=== PATIENT | male | born 1985 | race African-American/Black ===

== ENCOUNTER 2016-10-24 19:40 | Emergency (ER) | payer SELFPAY ==
[2016-10-24] MEDS ORDERED: PANTOPRAZOLE SODIUM 40 MG VIAL IV ONE (22:47)
[2016-10-24] MEDS ORDERED: ONDANSETRON HCL INJ/PF 4 MG/2 ML SDV IV ONE (22:47)
[2016-10-24] MEDS ORDERED: LORAZEPAM INJ 2 MG/1 ML VIAL IV ONE (22:48)
[2016-10-24] MEDS ORDERED: NORMAL SALINE 1000 ML 1,000 ML IV ONE (22:48)
[2016-10-24] MEDS ORDERED: HYDROMORPHONE HCL INJ/PF 2 MG/ML AMPULE IV ONE (22:48)
--- NOTE | 2016-10-24 22:53 | ER Document Report ---
ED General - General Chief Complaint: Nausea/Vomiting/Diarrhea Stated Complaint: NAUSEA,VOMITING,ABDOMINAL PAIN Time Seen by Provider: 10/24/16 22:29 Mode of Arrival: Ambulatory Information source: Patient, Relative TRAVEL OUTSIDE OF THE [place] IN LAST 30 DAYS: No - HPI Notes: Patient is a 30-year-old black male history of alcohol abuse drinks a sixpack plus hard liquor every day, has a history of recurrent vomiting and gastritis presents emergency department with report of persistent nausea and vomiting since earlier today. He does describe mild nonbloody diarrhea. He reports no hematemesis. He states he has diffuse upper abdominal pain. He states he has been seen previous times for the same, most recently down in [place] and at an urgent care center. The patient states she was given Phenergan and ibuprofen for pain. Patient denies any cough congestion chest pain Or fever. He describes generalized weakness with sensation of dehydration. Patient states he drinks daily, but denies history of DTs or shakes or seizures. - Related Data Allergies/Adverse Reactions: No Known Allergies Allergy (Verified 10/24/16 20:01) Past Medical History - General Information source: Patient - Social History Smoking Status: Current Every Day Smoker Frequency of alcohol use: Heavy Drug Abuse: Marijuana Lives with: Family Family History: Reviewed & Not Pertinent Neurological Medical History: Denies: Hx Seizures Renal/ Medical History: Denies: Hx Peritoneal Dialysis - Immunizations Immunizations up to date: Yes Hx Diphtheria, Pertussis, Tetanus Vaccination: Yes Review of Systems - Review of Systems Notes: REVIEW OF SYSTEMS: CONSTITUTIONAL : Denies fever, chills, or sweats. EENT: Denies eye, ear, throat, or mouth pain or symptoms. Denies nasal or sinus congestion or discharge. Denies throat, tongue, or mouth swelling or difficulty swallowing. CARDIOVASCULAR: Denies chest pain. Denies palpitations or racing or irregular heart beat. Denies ankle edema. RESPIRATORY: Denies cough, cold, or chest congestion. Denies shortness of breath, difficulty breathing, or wheezing. GASTROINTESTINAL: Denies blood in vomitus, stools, or per rectum. Denies black, tarry stools. Denies constipation. GENITOURINARY: Denies difficulty urinating, painful urination, burning, frequency, blood in urine, or discharge. MUSCULOSKELETAL: Denies back or neck pain or stiffness. Denies joint pain or swelling. SKIN: Denies rash, lesions or sores. HEMATOLOGIC : Denies easy bruising or bleeding. LYMPHATIC: Denies swollen, enlarged glands. NEUROLOGICAL: Denies confusion or altered mental status. Denies passing out or loss of consciousness. Denies dizziness or lightheadedness. Denies headache. Denies weakness or paralysis or loss of use of either side. Denies problems with gait or speech. Denies sensory loss, numbness, or tingling. Denies seizures. PSYCHIATRIC: Denies anxiety or stress. Denies depression, suicidal ideation, or homicidal ideation. ALL OTHER SYSTEMS REVIEWED AND NEGATIVE. Dictation was performed using [employer] voice recognition software Physical Exam - Vital signs Vitals: Temp Pulse BP Pulse Ox 98.0 F 77 125/83 100 10/24/16 20:04 10/24/16 20:04 10/24/16 20:04 10/24/16 20:04 - Notes Notes: PHYSICAL EXAMINATION: GENERAL: Well-appearing, well-nourished and in no moderate distress vomiting actively without hematemesis.. HEAD: Atraumatic, normocephalic. EYES: Pupils equal round and reactive to light, extraocular movements intact, sclera anicteric, conjunctiva are normal. ENT: Nares patent, oropharynx clear without exudates. Mucous membranes somewhat dry. NECK: Normal range of motion, supple without lymphadenopathy LUNGS: Breath sounds clear to auscultation bilaterally and equal. No wheezes rales or rhonchi. HEART: Regular rate and rhythm without murmurs ABDOMEN: Soft, nondistended abdomen. No guarding, no rebound. No masses appreciated. Upper midline abdominal tenderness noted on exam. No obvious hepatosplenomegaly no pulsatile mass. Musculoskeletal: Normal range of motion, no pitting or edema. No cyanosis. NEUROLOGICAL: Cranial nerves grossly intact. Normal speech, normal gait. Normal sensory, motor exams PSYCH: Normal mood, normal affect. SKIN: Warm, Dry, normal turgor, no rashes or lesions noted. Course - Re-evaluation Re-evalutation: 10/24/16 23:01 Patient was given IV normal saline bolus, Zofran, Protonix, Dilaudid, Ativan. 10/25/16 03:55 Patient was given additional IV normal saline with 20 KCl 1 L. Patient was given Pepcid and Carafate by mouth with adequate relief of his pain. Repeat abdominal exam showed no significant pain and patient was able to tolerate p.o. fluids without difficulty. There was no evidence for DTs or alcohol withdrawal. No evidence for pancreatitis, hepatitis, renal insufficiency, GI bleed. 10/25/16 03:59 - Vital Signs Vital signs: Temp Pulse Resp BP Pulse Ox 97.9 F 75 16 117/64 97 10/25/16 02:34 10/25/16 02:34 10/25/16 02:34 10/25/16 02:34 10/25/16 02:34 - Laboratory Result Diagrams: 10/25/16 00:20 10/25/16 00:20 Laboratory results interpreted by me: 10/25/16 10/25/16 10/25/16 00:20 00:20 00:20 Seg Neuts % (Manual) 92 H Lymphocytes % (Manual) 5 L Abs Neuts (Manual) 8.3 H Sodium 145.9 H Potassium 3.4 L Glucose 120 H Calcium 10.6 H Total Protein 9.1 H Albumin 5.3 H Urine Protein 30 H Urine Ketones 80 H Ur Leukocyte Esterase TRACE H Discharge - Discharge Clinical Impression: Alcohol abuse Gastritis Qualifiers: Gastritis type: alcoholic Chronicity: chronic Gastritis bleeding: without bleeding Qualified Code(s): K29.20 - Alcoholic gastritis without bleeding Vomiting Qualifiers: Vomiting type: cyclical vomiting Vomiting Intractability: intractable Nausea presence: with nausea Qualified Code(s): G43.A1 - Cyclical vomiting, intractable Condition: Stable Disposition: HOME, SELF-CARE Instructions: Antinausea Medication ([facility]), Intravenous (IV) Fluids ([facility]), Vomiting ([facility]), Gastritis ([facility]) Additional Instructions: Stop ibuprofen And other anti-inflammatory medications, as they are irritating her stomach. Prescriptions: Tramadol HCl [Ultram] 50 mg PO Q4HP PRN #20 tablet PRN Reason: Ondansetron [Zofran Odt 4 mg Tablet] 1 tab PO Q8HP PRN #10 tab.rapdis PRN Reason: For Nausea/Vomiting Omeprazole 40 mg PO DAILY #60 capsule.
[2016-10-25 00:42] LABS: AMORPHOUS SEDIMENT,URINE TRACE /HPF; APPEARANCE,URINE CLOUDY; BILIRUBIN,URINE NEGATIVE (NEGATIVE); GLUCOSE, URINE NEGATIVE (NEGATIVE); KETONES,URINE 80 mg/dL (NEGATIVE); LEUKOCYTE ESTERASE,URINE TRACE (NEGATIVE); NITRITE,URINE NEGATIVE (NEGATIVE); PROTEIN,URINE 30 mg/dL (NEGATIVE); URINE SPECIFIC GRAVITY 1.033; UROBILINOGEN,URINE NEGATIVE mg/dL (<2.0)
[2016-10-25 00:46] LABS: HEMATOCRIT 42.2 % (37.9-51.0); HGB HCT DIFFERENCE -0.2; MEAN CORPUSCULAR HEMOGLOBIN 31.3 pg (27.0-33.4); MEAN CORPUSCULAR HGB CONC 33.2 g/dL (32.0-36.0); MEAN CORPUSCULAR VOLUME 94 fl (80-97); RED BLOOD COUNT 4.47 10^6/uL (4.35-5.55); RED CELL DISTRIBUTION WIDTH 13.7 % (11.5-14.0)
[2016-10-25 00:48] LABS: ALANINE AMINOTRANSFERASE 31 U/L (21-72); ALBUMIN 5.3 g/dL (3.5-5.0); ALKALINE PHOSPHATASE 68 U/L (38-126); AMYLASE 75 U/L (30-110); ANION GAP 18 (5-19); ASPARTATE AMINO TRANSFERASE 40 U/L (17-59); BILIRUBIN,DIRECT 0.4 mg/dL (0.0-0.4); BILIRUBIN,TOTAL 0.9 mg/dL (0.2-1.3); BLOOD UREA NITROGEN 11 mg/dL (7-20); CALCIUM 10.6 mg/dL (8.4-10.2); CARBON DIOXIDE 25 mmol/L (22-30); CHLORIDE 103 mmol/L (98-107); CREATININE RESULT 0.71 mg/dL (0.52-1.25); GLUCOSE 120 mg/dL (75-110); LIPASE 43.5 U/L (23-300); POTASSIUM 3.4 mmol/L (3.6-5.0); SODIUM 145.9 mmol/L (137-145); TOTAL PROTEIN 9.1 g/dL (6.3-8.2)
[2016-10-25 00:51] LABS: ALCOHOL < 10 mg/dL (NONE DETECTED)
[2016-10-25 00:54] LABS: URINE BARBITURATES SCREEN NEGATIVE; URINE METHADONE SCREEN NEGATIVE; URINE OPIATES LOW NEGATIVE; URINE PHENCYCLIDINE SCREEN NEGATIVE
[2016-10-25 01:09] LABS: BASOPHILS % (MANUAL) 0 % (0-2); EOSINOPHILS % (MANUAL) 0 % (0-6); LYMPHOCYTES % (MANUAL) 5 % (13-45); TOTAL CELLS COUNTED 100
[2016-10-25 01:10] LABS: RBC MORPHOLOGY COMMENT NORMO-CYTIC/CHROMIC; TOXIC GRANULATION SLIGHT
[2016-10-25] MEDS ORDERED: POTASSI CL 20 MEQ/1/2NS 1L 1,000 ML IV ONE (01:23)
[2016-10-25] MEDS ORDERED: SUCRALFATE 1 GM TABLET PO ONE (01:26)
[2016-10-25] MEDS ORDERED: FAMOTIDINE 20 MG TABLET PO ONE (01:26)
[2016-10-25] MEDS ORDERED: ONDANSETRON ODT 4 MG TAB (6 TAB/DSPK) PO PRN (04:00)
[2016-10-25 04:39] VITALS: BP 108/69
== END 2016-10-25 04:40 | disposition home or self-care (01) ==
LOC: ER 19:40
DX: F10.10 Alcohol abuse, uncomplicated (principal); K29.20 Alcoholic gastritis without bleeding; G43.A1 Cyclical vomiting, in migraine, intractable; R19.7 Diarrhea, unspecified; R10.9 Unspecified abdominal pain
CPT/HCPCS: 99284; 96361; 96375; 96365; 36415; 80307 ×2; 82150; 83690; 85025; 80053; 81001; J3480; J1170; J2060; S0164; J2405; J7030

== ENCOUNTER 2016-10-26 10:43 | Emergency (ER) | payer SELFPAY ==
[2016-10-26] MEDS ORDERED: ONDANSETRON HCL INJ/PF 4 MG/2 ML SDV IV ONE (11:09)
[2016-10-26] MEDS ORDERED: NORMAL SALINE 1000 ML 1,000 ML IV ONE (11:09)
--- NOTE | 2016-10-26 11:11 | ER Document Report ---
ED Medical Screen (RME) - General Chief Complaint: Abdominal Pain Stated Complaint: NAUSEA Time Seen by Provider: 10/26/16 11:04 Mode of Arrival: Ambulatory Information source: Patient Notes: Patient presents to the emergency department actively vomiting. Patient was evaluated and treated here on October 24 for same symptoms. He did not cone picker his prescriptions. He reports he still vomiting. TRAVEL OUTSIDE OF THE [place] IN LAST 30 DAYS: No - Related Data Allergies/Adverse Reactions: No Known Allergies Allergy (Verified 10/26/16 10:45) Past Medical History Neurological Medical History: Denies: Hx Seizures Renal/ Medical History: Denies: Hx Peritoneal Dialysis - Immunizations Immunizations up to date: Yes Hx Diphtheria, Pertussis, Tetanus Vaccination: Yes Physical Exam - Vital signs Vitals: Temp Pulse Resp BP Pulse Ox 98.1 F 84 20 149/101 H 99 10/26/16 10:45 10/26/16 10:45 10/26/16 10:45 10/26/16 10:45 10/26/16 10:45 Course - Vital Signs Vital signs: Temp Pulse Resp BP Pulse Ox 98.1 F 84 20 149/101 H 99 10/26/16 10:45 10/26/16 10:45 10/26/16 10:45 10/26/16 10:45 10/26/16 10:45
[2016-10-26] MEDS ORDERED: METOCLOPRAMIDE HCL INJ/PF 10 MG/2 ML SDV IV ONE (11:51)
[2016-10-26] MEDS ORDERED: DIPHENHYDRAMINE HCL 50 MG/ML VIAL IV ONE (11:51)
[2016-10-26] MEDS ORDERED: HYDROMORPHONE HCL INJ/PF 2 MG/ML AMPULE IV ONE (11:51)
--- NOTE | 2016-10-26 11:51 | ER Document Report ---
ED GI/ - General Mode of Arrival: Ambulatory Information source: Patient TRAVEL OUTSIDE OF THE [place] IN LAST 30 DAYS: No - HPI Patient complains to provider of: Abdominal pain, Vomiting Onset: Other - Refer to HPI notes Associated symptoms: Nausea Similar symptoms previously: No Recently seen / treated by doctor: No <LEEANN CARRIZALES - Last Filed: 10/26/16 12:10> <BABAR MCMILLAN - Last Filed: 10/26/16 16:43> - General Chief Complaint: Abdominal Pain Stated Complaint: NAUSEA Time Seen by Provider: 10/26/16 11:04 Notes: Patient is a 30-year-old male presenting to the emergency department for an ongoing episode of nausea, vomiting, and abdominal pain. Patient states that the episode started on Sunday (10/24/16) and patient was evaluated [facility] emergency department on Sunday night (10/24/16). Patient tested positive for marijuana use on 10/24/16. Patient states that these vomiting and abdominal pain episodes happen frequently. Patient has been told that his marijuana use may be the cause of these episodes. Cyclic vomiting syndrome was discussed in detail with patient and patient's significant other at the bedside. Patient also drinks EtOH heavily as well as smokes cigarettes. Patient has no known drug allergies. (LEEANN CARRIZALES) - Related Data Allergies/Adverse Reactions: No Known Allergies Allergy (Verified 10/26/16 10:45) Past Medical History - General Information source: Patient - Social History Smoking Status: Current Every Day Smoker Chew tobacco use (# tins/day): No Frequency of alcohol use: Heavy Drug Abuse: Marijuana Family History: None Patient has suicidal ideation: No Patient has homicidal ideation: No - Medical History Medical History: Negative Surgical Hx: Negative - Immunizations Immunizations up to date: Yes Hx Diphtheria, Pertussis, Tetanus Vaccination: Yes <LEEANN CARRIZALES - Last Filed: 10/26/16 12:10> Review of Systems - Review of Systems Constitutional: No symptoms reported EENT: No symptoms reported Cardiovascular: No symptoms reported Respiratory: No symptoms reported Gastrointestinal: See HPI, Abdominal pain, Nausea, Vomiting Genitourinary: No symptoms reported Male Genitourinary: No symptoms reported Musculoskeletal: No symptoms reported Skin: No symptoms reported Hematologic/Lymphatic: No symptoms reported Neurological/Psychological: No symptoms reported -: Yes All other systems reviewed and negative <LEEANN CARRIZALES - Last Filed: 10/26/16 12:10> Physical Exam - Vital signs Interpretation: Normal - General General appearance: Appears well, Alert In distress: Mild - HEENT Head: Normocephalic, Atraumatic Eyes: Normal Pupils: PERRL Mucous membranes: Moist - Respiratory Respiratory status: No respiratory distress Chest status: Nontender Breath sounds: Normal Chest palpation: Normal - Cardiovascular Rhythm: Regular Heart sounds: Normal auscultation Murmur: No - Abdominal Inspection: Normal Distension: No distension Bowel sounds: Normal Tenderness: Guarding Organomegaly: No organomegaly - Back Back: Normal, Nontender - Extremities General upper extremity: Normal inspection, Normal ROM, Normal strength General lower extremity: Normal inspection, Normal ROM, Normal strength - Neurological Neuro grossly intact: Yes Cognition: Normal Orientation: AAOx4 Va[place] Coma Scale Eye Opening: Spontaneous [place] Coma Scale Verbal: Oriented Genny Coma Scale Motor: Obeys Commands Vaiden Coma Scale Total: 15 Speech: Normal - Psychological Associated symptoms: Normal affect, Normal mood - Skin Skin Temperature: Warm Skin Moisture: Dry <SHELLYBIJANLEEANN - Last Filed: 10/26/16 12:10> <BABAR MCMILLAN - Last Filed: 10/26/16 16:43> - Vital signs Vitals: Temp Pulse Resp BP Pulse Ox 98.1 F 84 20 149/101 H 99 10/26/16 10:45 10/26/16 10:45 10/26/16 10:45 10/26/16 10:45 10/26/16 10:45 Course <ROD CARRIZALESINE - Last Filed: 10/26/16 12:10> - Laboratory Result Diagrams: 10/26/16 13:57 10/26/16 13:57 <BABAR MCMILLAN - Last Filed: 10/26/16 16:43> - Re-evaluation Re-evalutation: 10/26/16 16:21 After the Reglan and Benadryl, the patient feels considerably better. IV fluids are infusing. Of note, his urine did show calcium oxalate crystals and he was counseled about the need to hydrate well throughout the year to prevent forming kidney stones. Discussed the need to stop using marijuana as this is probably cyclic vomiting related to marijuana use, and it will probably get worse over time. (BABAR MCMILLAN) - Vital Signs Vital signs: Temp Pulse Resp BP Pulse Ox 98.1 F 85 20 149/101 H 100 10/26/16 10:46 10/26/16 10:46 10/26/16 10:46 10/26/16 10:46 10/26/16 10:46 - Laboratory Laboratory results interpreted by me: 10/26/16 10/26/16 10/26/16 13:19 13:57 13:57 RBC 4.24 L Hgb 13.4 L Seg Neutrophils % 84.9 H Lymphocytes % 9.0 L Sodium 146.5 H Potassium 3.5 L Urine Ketones TRACE H Urine Blood SMALL H Discharge <LEEANN CARRIZALES - Last Filed: 10/26/16 12:10> <BABAR MCMILLAN - Last Filed: 10/26/16 16:43> - Discharge Clinical Impression: Cyclic vomiting syndrome Qualifiers: Vomiting Intractability: non-intractable Nausea presence: with nausea Qualified Code(s): G43.A0 - Cyclical vomiting, not intractable Condition: Stable Disposition: HOME, SELF-CARE Additional Instructions: Vomiting: Vomiting can be part of many illnesses. Most cases of vomiting are due to gastroenteritis, usually a viral infection in the intestinal tract. There is no specific treatment. The disease will end by itself. For now, the main danger to your child is dehydration. During the first few hours of the illness, give clear liquids, such as Pedialyte. Try to give small quantities frequently, such as a teaspoon of liquid every minute or about an ounce of fluids every five to ten minutes. Medications may be prescribed by the physician for special cases. After an hour or two of fluids without vomiting, add rice cereal, toast, applesauce, or bananas and other more solid foods to the clear liquids. Call the physician or go to the hospital if vomiting increases or blood appears in the bowel movement or vomitus; if your child fails to improve, or if signs of dehydration occur (no wet diapers for eight to twelve hours, tongue and mouth become dry, not acting as alert as usual). //////////////////////////////////////////////////////////////////////////////// /////////////////////////////////////////////////////////// Your vomiting is quite likely "cyclic vomiting" due to marijuana use. Take the Reglan as prescribed for nausea. Take one Benadryl with the Reglan for additional nausea control. Drink plenty of cool clear liquids. Stop using marijuana. Follow-up with a local medical doctor if not improving. RETURN TO THE EMERGENCY ROOM IF ANY NEW OR WORSENING SYMPTOMS. Prescriptions: Metoclopramide HCl [Reglan 10 mg Tablet] 10 mg PO Q4 PRN #20 tablet PRN Reason: For Nausea/Vomiting Scribe Attestation: 10/26/16 16:43 I personally performed the services described in the documentation, reviewed and edited the documentation which was dictated to the scribe in my presence, and it accurately records my words and actions. (BABAR MCMILLAN) Scribe Documentation - Scribe Written by Jo:: Jo Gaines, 10/26/16 12:19 acting as scribe for :: Angela <LEEANN CARRIZALES - Last Filed: 10/26/16 12:10>
[2016-10-26] MEDS ORDERED: DEXTROSE 5%-LACTATED RINGERS 1,000 ML IV ONE (13:43)
[2016-10-26 14:16] LABS: ABSOLUTE LYMPHOCYTES (AUTO) 0.8 10^3/uL (0.5-4.7); ABSOLUTE MONOCYTES (AUTO) 0.5 10^3/uL (0.1-1.4); ABSOLUTE NEUT (AUTO) 7.1 10^3/uL (1.7-8.2); BASOPHILS % (AUTO) 0.3 % (0-2); HEMATOCRIT 40.6 % (37.9-51.0); HEMOGLOBIN 13.4 g/dL (13.5-17.0); HGB HCT DIFFERENCE -0.4; MEAN CORPUSCULAR HEMOGLOBIN 31.6 pg (27.0-33.4); MEAN CORPUSCULAR HGB CONC 32.9 g/dL (32.0-36.0); MEAN CORPUSCULAR VOLUME 96 fl (80-97); MONOCYTES % (AUTO) 5.8 % (3-13); RED BLOOD COUNT 4.24 10^6/uL (4.35-5.55); RED CELL DISTRIBUTION WIDTH 13.5 % (11.5-14.0); SEGMENTED NEUTROPHILS % (AUTO) 84.9 % (42-78); WHITE BLOOD COUNT 8.4 10^3/uL (4.0-10.5)
[2016-10-26 14:29] LABS: ALANINE AMINOTRANSFERASE 32 U/L (21-72); ALBUMIN 4.4 g/dL (3.5-5.0); ALKALINE PHOSPHATASE 55 U/L (38-126); ANION GAP 15 (5-19); ASPARTATE AMINO TRANSFERASE 24 U/L (17-59); BILIRUBIN,DIRECT 0.3 mg/dL (0.0-0.4); BILIRUBIN,TOTAL 0.6 mg/dL (0.2-1.3); BLOOD UREA NITROGEN 9 mg/dL (7-20); CALCIUM 9.4 mg/dL (8.4-10.2); CARBON DIOXIDE 26 mmol/L (22-30); CHLORIDE 106 mmol/L (98-107); CREATININE RESULT 0.73 mg/dL (0.52-1.25); GLUCOSE 92 mg/dL (75-110); LIPASE 68.7 U/L (23-300); POTASSIUM 3.5 mmol/L (3.6-5.0); SODIUM 146.5 mmol/L (137-145); TOTAL PROTEIN 7.4 g/dL (6.3-8.2)
[2016-10-26 15:20] LABS: APPEARANCE,URINE CLEAR; BILIRUBIN,URINE NEGATIVE (NEGATIVE); CALCIUM OXALATE CRYSTALS,URINE FEW /HPF; GLUCOSE, URINE NEGATIVE (NEGATIVE); KETONES,URINE TRACE mg/dL (NEGATIVE); LEUKOCYTE ESTERASE,URINE NEGATIVE (NEGATIVE); NITRITE,URINE NEGATIVE (NEGATIVE); PROTEIN,URINE NEGATIVE (NEGATIVE); URINE SPECIFIC GRAVITY 1.024; UROBILINOGEN,URINE NEGATIVE mg/dL (<2.0)
[2016-10-26 17:44] VITALS: BP 126/86
== END 2016-10-26 17:31 | disposition home or self-care (01) ==
LOC: ER 10:43
DX: G43.A0 Cyclical vomiting, in migraine, not intractable (principal); R10.9 Unspecified abdominal pain; F17.200 Nicotine dependence, unspecified, uncomplicated
CPT/HCPCS: 99283; 96361; 96375; 96365; 36415; 83690; 85025; 80053; 81001; J1200; J2765; J1170; J2405; J7030

== ENCOUNTER 2016-10-27 02:41 | Emergency (ER) | payer SELFPAY ==
[2016-10-27 03:19] LABS: APPEARANCE,URINE CLEAR; BILIRUBIN,URINE NEGATIVE (NEGATIVE); GLUCOSE, URINE NEGATIVE (NEGATIVE); KETONES,URINE NEGATIVE (NEGATIVE); LEUKOCYTE ESTERASE,URINE NEGATIVE (NEGATIVE); NITRITE,URINE NEGATIVE (NEGATIVE); PROTEIN,URINE NEGATIVE (NEGATIVE); UROBILINOGEN,URINE NEGATIVE mg/dL (<2.0)
[2016-10-27] MEDS ORDERED: CAPSAICIN 0.025% CREAM 60 GM TP ONE (03:45)
[2016-10-27] MEDS ORDERED: HALOPERIDOL LACTATE INJ 5 MG/1 ML VIAL IM ONE (03:45)
[2016-10-27] MEDS ORDERED: PROMETHAZINE HCL INJ 50 MG/1 ML VIAL IM PRN (03:46)
[2016-10-27] MEDS ORDERED: LORAZEPAM INJ 2 MG/1 ML VIAL IV ONE (03:46)
[2016-10-27] MEDS ORDERED: ONDANSETRON 4 MG TAB.RAPDIS PO ONE (04:06)
[2016-10-27 04:32] LABS: ABSOLUTE LYMPHOCYTES (AUTO) 0.9 10^3/uL (0.5-4.7); ABSOLUTE MONOCYTES (AUTO) 0.5 10^3/uL (0.1-1.4); BASOPHILS % (AUTO) 0.3 % (0-2); EOSINOPHILS % (AUTO) 0.2 % (0-6); HEMATOCRIT 36.2 % (37.9-51.0); HEMOGLOBIN 12.1 g/dL (13.5-17.0); HGB HCT DIFFERENCE 0.1; LYMPHOCYTES % (AUTO) 14.5 % (13-45); MEAN CORPUSCULAR HGB CONC 33.4 g/dL (32.0-36.0); MEAN CORPUSCULAR VOLUME 96 fl (80-97); MONOCYTES % (AUTO) 8.3 % (3-13); RED BLOOD COUNT 3.78 10^6/uL (4.35-5.55); RED CELL DISTRIBUTION WIDTH 13.5 % (11.5-14.0); SEGMENTED NEUTROPHILS % (AUTO) 76.7 % (42-78); WHITE BLOOD COUNT 6.5 10^3/uL (4.0-10.5)
[2016-10-27 04:46] LABS: ANION GAP 15 (5-19); BLOOD UREA NITROGEN 3 mg/dL (7-20); CALCIUM 9.7 mg/dL (8.4-10.2); CARBON DIOXIDE 24 mmol/L (22-30); CHLORIDE 103 mmol/L (98-107); CREATININE RESULT 0.69 mg/dL (0.52-1.25); GLUCOSE 100 mg/dL (75-110); LIPASE 60.9 U/L (23-300); POTASSIUM 3.1 mmol/L (3.6-5.0); SODIUM 142.3 mmol/L (137-145)
[2016-10-27] MEDS ORDERED: POTASSIUM CHLORIDE 20 MEQ/15 ML UDCUP PO ONE (04:48)
--- NOTE | 2016-10-27 04:57 | RADIOLOGY REPORT (SQ) ---
EXAM DESCRIPTION: KUB/ABDOMEN (SINGLE VIEW) COMPLETED DATE/TIME: 10/27/2016 4:42 am REASON FOR STUDY: abdominal pain COMPARISON: CT abdomen and pelvis 03/18/2016 NUMBER OF VIEWS: One view. TECHNIQUE: Supine radiographic image of the abdomen acquired. LIMITATIONS: None. FINDINGS: BOWEL GAS PATTERN: Nonobstructive bowel gas pattern. No dilated loops. CALCIFICATIONS: No suspicious calcifications. SOFT TISSUES: No gross mass or suggestion of organomegaly. HARDWARE: None in the abdomen. BONES: No acute findings. IMPRESSION: Nonobstructive bowel gas pattern. TECHNICAL DOCUMENTATION: JOB ID: [id number] [employer]- All Rights Reserved
--- NOTE | 2016-10-27 05:40 | ER Document Report ---
ED GI/ - General Chief Complaint: Abdominal Pain Stated Complaint: ABDOMINAL PAIN Time Seen by Provider: 10/27/16 03:26 Notes: patient is 30 year old male who presents with abdominal pain he has been evaluated in the emergency department 3 times over the past couple of days for cyclic vomiting and alcohol abuse. Been noncompliant with clear liquid diet, ceasing from drinking alcohol or smoking marijuana. Patient states has not been taking his medications at home. He is also here today for referral for a detox program TRAVEL OUTSIDE OF THE [place] IN LAST 30 DAYS: No - Related Data Allergies/Adverse Reactions: No Known Allergies Allergy (Verified 10/26/16 10:45) Past Medical History - Social History Smoking Status: Current Every Day Smoker Drug Abuse: Marijuana Family History: None Patient has suicidal ideation: No Patient has homicidal ideation: No Neurological Medical History: Denies: Hx Seizures Renal/ Medical History: Denies: Hx Peritoneal Dialysis - Immunizations Immunizations up to date: Yes Hx Diphtheria, Pertussis, Tetanus Vaccination: Yes Review of Systems - Review of Systems Constitutional: No symptoms reported Gastrointestinal: Abdominal pain, Nausea, Vomiting -: Yes All other systems reviewed and negative Physical Exam - Vital signs Vitals: Temp Pulse Resp BP Pulse Ox 97.8 F 79 16 167/99 H 100 10/27/16 02:43 10/27/16 02:43 10/27/16 02:43 10/27/16 02:43 10/27/16 02:43 - Notes Notes: PHYSICAL EXAM GENERAL: Alert, interacts well. HEAD: Normocephalic, atraumatic. EYES: Pupils equal, round, and reactive to light. Extraocular movements intact. ENT: Oral mucosa moist, tongue midline. NECK: Full range of motion. Supple. Trachea midline. LUNGS: Clear to auscultation bilaterally, no wheezes, rales, or rhonchi. No respiratory distress. HEART: Regular rate and rhythm. No murmurs, gallops, or rubs. ABDOMEN: Soft, nondistended, throughout with guarding. No rebound, or rigidity.. Bowel sounds present in all 4 quadrants. EXTREMITIES: Moves all 4 extremities spontaneously. No edema, radial and dorsalis pedis pulses 2/4 bilaterally. No cyanosis. NEUROLOGICAL: Alert and oriented x4. Normal speech. PSYCH: Normal affect, normal mood. SKIN: Warm, dry, normal turgor. No rashes or lesions noted. Course - Re-evaluation Re-evalutation: 10/27/16 07:43 Patient is a 30-year-old male who presents with cyclic vomiting after chronic alcohol and marijuana use. Labs do not reveal any concern for acute dehydration , infection. Patient treated for cannabinoid hyperemesis. Resources for outpatient alcohol treatment. Patient agrees with treatment plan Per [facility] protocol and guidelines, this case was discussed with supervising physician Dr. Rell Curry prior to discharge - Vital Signs Vital signs: Temp Pulse Resp BP Pulse Ox 97.8 F 79 16 167/99 H 100 10/27/16 02:43 10/27/16 02:43 10/27/16 02:43 10/27/16 02:43 10/27/16 02:43 - Laboratory Result Diagrams: 10/27/16 04:15 10/27/16 04:15 Laboratory results interpreted by me: 10/27/16 10/27/16 04:15 04:15 RBC 3.78 L Hgb 12.1 L Hct 36.2 L Potassium 3.1 L BUN 3 L - Diagnostic Test Radiology reviewed: Image reviewed, Reports reviewed Discharge - Discharge Clinical Impression: Alcohol abuse Vomiting Qualifiers: Vomiting type: cyclical vomiting Vomiting Intractability: intractable Nausea presence: with nausea Qualified Code(s): G43.A1 - Cyclical vomiting, intractable Condition: Good Disposition: HOME, SELF-CARE Instructions: Vomiting ([facility]), Chronic Alcoholism ([facility]) Additional Instructions: Your vomiting is quite likely "cyclic vomiting" due to marijuana use. Take the Reglan as prescribed for nausea. Take one Benadryl with the Reglan for additional nausea control. Drink plenty of cool clear liquids. Stop using marijuana. Follow-up with a local medical doctor if not improving. Forms: Elevated Blood Pressure Referrals: [facility] [Provider Group] - Follow up as needed
[2016-10-27 07:49] VITALS: BP 136/89
== END 2016-10-27 06:35 | disposition home or self-care (01) ==
LOC: ER 02:41
DX: G43.A1 Cyclical vomiting, in migraine, intractable (principal); F10.10 Alcohol abuse, uncomplicated; R10.9 Unspecified abdominal pain; F17.200 Nicotine dependence, unspecified, uncomplicated
CPT/HCPCS: 99284; 96372; 96374; 36415; 80307; 83690; 85025; 80048; 81001; 74000; S0119; J1630; J3490; J2060

== ENCOUNTER 2016-11-13 17:13 | Emergency (ER) | payer SELFPAY ==
[2016-11-13] MEDS ORDERED: LIDOCAINE 1%/EPINEPHRINE INJ 20 ML VIAL INJ ONE (17:20)
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
[2016-11-13 18:27] LABS: ABSOLUTE MONOCYTES (AUTO) 0.6 10^3/uL (0.1-1.4); ABSOLUTE NEUT (AUTO) 6.1 10^3/uL (1.7-8.2); BASOPHILS % (AUTO) 0.3 % (0-2); EOSINOPHILS % (AUTO) 0.2 % (0-6); HEMATOCRIT 39.1 % (37.9-51.0); HEMOGLOBIN 12.9 g/dL (13.5-17.0); HGB HCT DIFFERENCE -0.4; LYMPHOCYTES % (AUTO) 13.3 % (13-45); MEAN CORPUSCULAR HEMOGLOBIN 31.5 pg (27.0-33.4); MEAN CORPUSCULAR HGB CONC 33.1 g/dL (32.0-36.0); MEAN CORPUSCULAR VOLUME 95 fl (80-97); MONOCYTES % (AUTO) 7.7 % (3-13); RED CELL DISTRIBUTION WIDTH 13.4 % (11.5-14.0); SEGMENTED NEUTROPHILS % (AUTO) 78.5 % (42-78); WHITE BLOOD COUNT 7.8 10^3/uL (4.0-10.5)
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
[2016-11-13 18:30] LABS: PROTHROMBIN TIME 12.9 SEC (11.4-15.4)
[2016-11-13 18:31] LABS: PARTIAL THROMBOPLASTIN TIME 24.4 SEC (23.5-35.8)
[2016-11-13 18:47] LABS: ALANINE AMINOTRANSFERASE 51 U/L (21-72); ALBUMIN 4.6 g/dL (3.5-5.0); ALCOHOL 171 mg/dL (NONE DETECTED); ALKALINE PHOSPHATASE 43 U/L (38-126); ANION GAP 17 (5-19); ASPARTATE AMINO TRANSFERASE 45 U/L (17-59); BILIRUBIN,DIRECT 0.3 mg/dL (0.0-0.4); BILIRUBIN,TOTAL 0.5 mg/dL (0.2-1.3); BLOOD UREA NITROGEN 11 mg/dL (7-20); CALCIUM 9.6 mg/dL (8.4-10.2); CARBON DIOXIDE 21 mmol/L (22-30); CHLORIDE 107 mmol/L (98-107); CREATININE RESULT 0.83 mg/dL (0.52-1.25); GLUCOSE 98 mg/dL (75-110); POTASSIUM 3.9 mmol/L (3.6-5.0); TOTAL PROTEIN 7.6 g/dL (6.3-8.2)
[2016-11-13] MEDS ORDERED: CEPHALEXIN 500 MG CAPSULE PO ONE (19:11)
== END 2016-11-13 19:55 | disposition home or self-care (01) ==
LOC: ER 17:13
PROC: 0KQ90ZZ Repair Right Lower Arm and Wrist Muscle, Open Approach (ICD-10-PCS; principal; 2016-11-13)
PROC: 0HQ0XZZ Repair Scalp Skin, External Approach (ICD-10-PCS; 2016-11-13)
PROC: 0HQCXZZ Repair Left Upper Arm Skin, External Approach (ICD-10-PCS; 2016-11-13)
DX: R10.9 Unspecified abdominal pain (principal); G89.29 Other chronic pain; S01.01XA Laceration without foreign body of scalp, initial encounter; S51.811A Laceration without foreign body of right forearm, initial encounter; S41.112A Laceration without foreign body of left upper arm, initial encounter; X99.1XXA Assault by knife, initial encounter
CPT/HCPCS: 99285; 86900; 86901; 36415; 86850; 80307; 85025; 85610; 85730; 80053; 71010; 73090; 70450; 13122; 13121; 12004; L3984; J3490

== ENCOUNTER 2016-11-16 04:01 | Emergency (ER) | payer SELFPAY ==
[2016-11-16] MEDS ORDERED: CEFTRIAXONE INJ 1000 MG VIAL IM ONE (04:28)
[2016-11-16] MEDS ORDERED: LIDOCAINE 1% INJ-PF (10 MG/ML) 30 ML SDV INFIL ONE (04:28)
[2016-11-16] MEDS ORDERED: SULFAMETHOXAZOLE/TRIMETHOPRIM 800-160 MG TABLET PO ONE (04:28)
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
[2016-11-16 04:45] VITALS: BP 125/91
== END 2016-11-16 04:56 | disposition home or self-care (01) ==
LOC: ER 04:01
DX: S01.01XD Laceration without foreign body of scalp, subsequent encounter (principal); S51.811D Laceration without foreign body of right forearm, subsequent encounter; L03.113 Cellulitis of right upper limb; X99.9XXD Assault by unspecified sharp object, subsequent encounter; I10 Essential (primary) hypertension
CPT/HCPCS: 99282; 96372; J3490; J0696

== ENCOUNTER 2017-05-25 08:51 | Inpatient (IN) | payer SELFPAY ==
[2017-05-25] MEDS ORDERED: MAG HYDROX/AL HYDROX/SIMETH SUSP 30 ML UDCUP PO ONE (09:29)
[2017-05-25] MEDS ORDERED: DIPHENHYDRAMINE HCL 50 MG/ML VIAL IV ONE (09:29)
[2017-05-25] MEDS ORDERED: ONDANSETRON HCL INJ/PF 4 MG/2 ML SDV IV ONE (09:29)
[2017-05-25] MEDS ORDERED: HALOPERIDOL LACTATE INJ 5 MG/1 ML VIAL IV ONE (09:29)
--- NOTE | 2017-05-25 09:31 | ER Document Report ---
ED General - General Chief Complaint: Abdominal Pain Stated Complaint: ABDOMINAL PAIN Time Seen by Provider: 05/25/17 09:18 Notes: 31-year-old male presents with burning pain in his chest abdomen and back with intractable vomiting for 12 hours, severe, similar to prior episodes. He has been here a couple times for this once was diagnosed with colitis. He does smoke marijuana heavily every day. No fever chills or urinary symptoms. Has not tried any meds before coming in. TRAVEL OUTSIDE OF THE [place] IN LAST 30 DAYS: No - Related Data Allergies/Adverse Reactions: No Known Allergies Allergy (Verified 10/26/16 10:45) Past Medical History - Social History Smoking Status: Current Every Day Smoker Cigarette use (# per day): Yes - The patient ED visit today was directly related to their abuse of tobacco. Drug Abuse: Marijuana Family History: None - Past Medical History Cardiac Medical History: Reports: Hx Hypertension Neurological Medical History: Denies: Hx Seizures Renal/ Medical History: Denies: Hx Peritoneal Dialysis - Immunizations Immunizations up to date: Yes Hx Diphtheria, Pertussis, Tetanus Vaccination: Yes Review of Systems - Review of Systems Notes: REVIEW OF SYSTEMS GEN: Denies fever, chills, weight loss ENT: Denies sore throat, nasal discharge, ear pain EYES: Denies blurry vision, eye pain, discharge CV: D chest pain, denies palpitations, edema RESP: Denies cough, shortness of breath, wheezing GI: D vomiting and abdominal pain a MSK: Denies joint pain/swelling, edema, SKIN: Denies rash, skin lesions LYMPH: Denies swollen glands/lymph nodes NEURO: Denies headache, focal weakness or numbness, dizziness PSYCH: Denies depression, suicidal or homicidal ideation PHYSICAL EXAMINATION General: Slightly diaphoretic, ill-appearing Head: Atraumatic, normocephalic ENT: Mouth normal, oropharynx moist, no exudates or tonsillar enlargement Eyes: Conjunctiva normal, pupils equal, lids normal Neck: No JVD, supple, no guarding CVS: Normal rate, regular rhythm, no murmurs Resp: No resp distress, equal and normal breath sounds bilaterally GI: Nondistended, soft, no tenderness to palpation, no rebound or guarding Ext: No deformities, no edema, normal range of motion in upper and lower ext Back: No CVA or midline TTP Skin: No rash, warm Lymphatic: No lymphadeopathy noted Neuro: Awake, alert. Face symmetric. GCS 15. Physical Exam - Vital signs Vitals: Temp Pulse Resp BP Pulse Ox 97.6 F 100 20 128/99 H 100 05/25/17 08:57 05/25/17 08:57 05/25/17 08:57 05/25/17 08:57 05/25/17 08:57 Course - Re-evaluation Re-evalutation: 05/25/17 09:31 31-year-old male presents with belly pain chest pain back pain and vomiting. He has had this before. He does have a history of colitis but today he has no fever or abdominal tenderness. This is likely a combination of cyclic vomiting , or cannabis hyperemesis but I will rule out arrhythmia with EKG, will get CMP to rule out liver disease and a lipase to rule out pancreatitis. We will treat him empiric with Haldol Ativan 05/25/17 10:11 ECG shows peak T waves. Labs are pending. Will get Accu-Chek. Concern for hyperkalemia versus DKA versus both.. 05/25/17 10:12 05/25/17 11:33 Potassium returned normal. Patient does have a decreased bicarb and increased anion gap and sugars only 121. Possibilities include alcoholic ketoacidosis, starvation ketoacidosis and euglycemic DKA. Will give sugar empirically, IV fluids continue antiemetics. Will need to be admitted. We will still get a CT to rule out surgical cause. Pain is added. 05/25/17 11:4 Reassessed at 11:40 AM: Feeling slightly better but still feels terrible. Still nauseous. CT looks negative. Patient now admits to drinking heavily yesterday. I think his ketoacidosis is probably due partially alcohol and partially due to starvation. We will continue glucose fluids and admit. 05/25/17 12:00 Added serum osmole's, salicylate and acetaminophen. Discussed with Zhang Dobbs for admission. - Vital Signs Vital signs: Temp Pulse Resp BP Pulse Ox 97.6 F 102 H 20 142/74 H 98 05/25/17 08:57 05/25/17 09:00 05/25/17 09:00 05/25/17 09:00 05/25/17 09:00 - Laboratory Result Diagrams: 05/25/17 10:16 05/25/17 10:11 Laboratory results interpreted by me: 05/25/17 05/25/17 05/25/17 10:11 10:16 10:16 WBC 16.7 H Seg Neutrophils % 88.8 H Lymphocytes % 5.3 L Absolute Neutrophils 14.9 H Sodium 145.4 H Carbon Dioxide 18 L Anion Gap 30 H Glucose 121 H POC Glucose 124 H Calcium 10.9 H Direct Bilirubin 0.5 H AST 153 H Total Protein 9.6 H Albumin 5.6 H - Diagnostic Test Radiology reviewed: Image reviewed, Reports reviewed Critical Care Note - Critical Care Note Total time excluding time spent on procedures (mins): 40 Comments: The above patient is critically ill. Not including procedures, but including direct re-evaluations, speaking with patient and/or consultants, interpreting results, and documenting, I spent the total amount of minute listed listed above on critical care time Discharge - Discharge Clinical Impression: High anion gap metabolic acidosis Intractable vomiting Qualifiers: Vomiting type: unspecified Nausea presence: with nausea Qualified Code(s): R11.2 - Nausea with vomiting, unspecified Condition: Fair Disposition: ADMITTED INPATIENT Admitting Provider: Hospitalist Unit Admitted: Telemetry
[2017-05-25 10:29] LABS: ABSOLUTE LYMPHOCYTES (AUTO) 0.9 10^3/uL (0.5-4.7); ABSOLUTE MONOCYTES (AUTO) 0.9 10^3/uL (0.1-1.4); ABSOLUTE NEUT (AUTO) 14.9 10^3/uL (1.7-8.2); BASOPHILS % (AUTO) 0.3 % (0-2); HEMATOCRIT 45.1 % (37.9-51.0); HEMOGLOBIN 15.2 g/dL (13.5-17.0); LYMPHOCYTES % (AUTO) 5.3 % (13-45); MEAN CORPUSCULAR HEMOGLOBIN 31.2 pg (27.0-33.4); MEAN CORPUSCULAR HGB CONC 33.7 g/dL (32.0-36.0); MEAN CORPUSCULAR VOLUME 93 fl (80-97); MONOCYTES % (AUTO) 5.6 % (3-13); PLATELET COUNT 221 10^3/uL (150-450); RED BLOOD COUNT 4.87 10^6/uL (4.35-5.55); RED CELL DISTRIBUTION WIDTH 13.4 % (11.5-14.0); SEGMENTED NEUTROPHILS % (AUTO) 88.8 % (42-78); TOTAL CELLS COUNTED % (AUTO) 100 %; WHITE BLOOD COUNT 16.7 10^3/uL (4.0-10.5)
[2017-05-25 11:13] LABS: ALANINE AMINOTRANSFERASE 60 U/L (21-72); ALBUMIN 5.6 g/dL (3.5-5.0); ALKALINE PHOSPHATASE 82 U/L (38-126); ASPARTATE AMINO TRANSFERASE 153 U/L (17-59); BILIRUBIN,DIRECT 0.5 mg/dL (0.0-0.4); BILIRUBIN,TOTAL 0.6 mg/dL (0.2-1.3); BLOOD UREA NITROGEN 16 mg/dL (7-20); CALCIUM 10.9 mg/dL (8.4-10.2); CARBON DIOXIDE 18 mmol/L (22-30); GLUCOSE 121 mg/dL (75-110); LIPASE 25.8 U/L (23-300); POTASSIUM 4.5 mmol/L (3.6-5.0); SODIUM 145.4 mmol/L (137-145); TOTAL PROTEIN 9.6 g/dL (6.3-8.2)
[2017-05-25 11:23] LABS: ANION GAP 30 (5-19); CHLORIDE 99 mmol/L (98-107)
[2017-05-25] MEDS ORDERED: NORMAL SALINE 1000 ML 1,000 ML IV PRN (11:29)
[2017-05-25] MEDS ORDERED: DEXTROSE 50%-WATER 25 GM/50 ML DISP.SYRIN IV ONE (11:30)
--- NOTE | 2017-05-25 11:43 | RADIOLOGY REPORT (SQ) ---
EXAM DESCRIPTION: CT ABD/PELVIS WITH IV ONLY COMPLETED DATE/TIME: 05/25/2017 11:28 am REASON FOR STUDY: ABD PAIN vomiting COMPARISON: None. TECHNIQUE: CT scan of the abdomen and pelvis performed using helical scanning technique with dynamic intravenous contrast injection. No oral contrast. Images reviewed with lung, soft tissue, and bone windows. Reconstructed coronal and sagittal MPR images reviewed. Delayed images for evaluation of the urinary system also acquired. All images stored on PACS. All CT scanners at this facility use dose modulation, iterative reconstruction, and/or weight based d osing when appropriate to reduce radiation dose to as low as reasonably achievable (ALARA). [facility]: Dose Right [facility]: CareDose [facility]: Dose Right [facility]: Teradose 4D [facility]: ONtheAIR CONTRAST TYPE AND DOSE: contrast/concentration: Isovue 370.00 mg/ml; Total Contrast Delivered: 74.1 ml; Total Saline Delivered: 66.0 ml RENAL FUNCTION: None required. The patient is less than 50 years old. RADIATION DOSE: CT Rad equipment meets quality standard of care and radiation dose reduction techniq ues were employed. CTDIvol: 4.8 - 4.9 mGy. DLP: 485 mGy-cm.. LIMITATIONS: None. FINDINGS: LOWER CHEST: No significant findings. No nodules or infiltrates. LIVER: Normal size. No masses. No dilated ducts. SPLEEN: Normal size. No focal lesions. PANCREAS: No masses. No significant calcifications. No adjacent inflammation or peripancreatic fluid collections. Pancreatic duct not dilated. GALLBLADDER: No identified stones by CT criteria. No inflammatory changes to suggest cholecystitis. ADRENAL GLANDS: No significant masses or asymmetry. RIGHT KIDNEY AND URETER: No solid masses. No significant calcifications. No hydronephrosis or hyd roureter. LEFT KIDNEY AND URETER: No solid masses. No significant calcifications. No hydronephrosis or hydr oureter. AORTA AND VESSELS: No aneurysm. No dissection. Renal arteries, SMA, celiac without stenosis. RETROPERITONEUM: No retroperitoneal adenopathy, hemorrhage or masses. BOWEL AND PERITONEAL CAVITY: There is mild bowel wall thickening throughout the colon, which is not d istended. No masses or inflammatory changes. No free fluid or peritoneal masses. APPENDIX: Normal. PELVIS: No mass. No free fluid. Normal bladder. ABDOMINAL WALL: No masses. No hernias. BONES: No significant or acute findings. OTHER: No other significant finding. IMPRESSION: 1. MILD BOWEL WALL THICKENING THROUGHOUT THE COLON. THIS IS MOST LIKELY ARTIFACT DUE TO NONDISTENTIO N. DIFFUSE PANCOLITIS COULD BE A POSSIBILITY ALTHOUGH THERE ARE NO OTHER SIGNIFICANT INFLAMMATORY CH ANGES OTHERWISE. 2. NO OTHER SIGNIFICANT OR ACUTE FINDING IN THE ABDOMEN OR PELVIS ON CT SCAN WITH IV CONTRAST. TECHNICAL DOCUMENTATION: JOB ID: [id number] Quality ID # [id number]: Final reports with documentation of one or more dose reduction techniques (e.g., Au tomated exposure control, adjustment of the mA and/or kV according to patient size, use of iterative reconstruction technique) 2010 [employer]- All Rights Reserved
[2017-05-25] MEDS ORDERED: IPRATROPIUM/ALBUTEROL 0.5-2.5 MG/3 ML AMPUL NEB PRN (12:09)
[2017-05-25] MEDS ORDERED: METRONIDAZOLE 500 MG TABLET PO ONE (13:15)
[2017-05-25] MEDS ORDERED: PANTOPRAZOLE SODIUM 40 MG VIAL IV ONE (13:30)
[2017-05-25] MEDS: PROMETHAZINE HCL 25 MG TABLET PO PRN ×2 (13:30→22:22)
[2017-05-25 13:56] LABS: URINE AMPHETAMINES SCREEN NEGATIVE; URINE BARBITURATES SCREEN NEGATIVE; URINE BENZODIAZEPINES SCREEN NEGATIVE; URINE COCAINE SCREEN NEGATIVE; URINE METHADONE SCREEN NEGATIVE; URINE PHENCYCLIDINE SCREEN NEGATIVE
[2017-05-25 14:02] LABS: URINE MARIJUANA (THC) SCREEN UNCONFIRMED POSITIVE
[2017-05-25] MEDS: HEPARIN SOD (PORCINE) 5,000 UNIT/ML 1 ML SYRINGE SUBCUT SCH ×2 (14:06→22:23)
[2017-05-25 14:33] LABS: INTERNATIONAL RATION (INR) 0.89; PROTHROMBIN TIME 12.7 SEC (11.4-15.4)
[2017-05-25 14:55] LABS: MAGNESIUM 1.8 mg/dL (1.6-2.3)
[2017-05-25 14:56] LABS: BLOOD UREA NITROGEN 15 mg/dL (7-20); CALCIUM 10.3 mg/dL (8.4-10.2); CHLORIDE 97 mmol/L (98-107); GLUCOSE 257 mg/dL (75-110); POTASSIUM 4.6 mmol/L (3.6-5.0)
[2017-05-25 14:57] LABS: ACETAMINOPHEN < 10 ug/mL (10-30); SALICYLATE < 1.0 mg/dL (2.0-20.0)
[2017-05-25 15:04] LABS: CARBON DIOXIDE 20 mmol/L (22-30); SODIUM 140.5 mmol/L (137-145)
[2017-05-25 15:08] LABS: ANION GAP 24 (5-19)
[2017-05-25] MEDS ORDERED: THIAMINE HCL 100 MG, FOLIC ACID 1 MG in NORMAL SALINE 250 ML IV ONE (16:00)
--- NOTE | 2017-05-25 17:02 | PDOC H&P ---
History of Present Illness Admission Date/PCP: 05/25/17 12:13 Patient complains of: Abdominal pain and nausea History of Present Illness: JOSE DODGE is a 31 year old male with a past medical history of gastritis, alcohol tobacco and marijuana abuse. Patient presents with 12 hours of epigastric abdominal pain and a single episode of coffee-ground emesis. He presents appearing intoxicated, with leukocytosis and metabolic acidosis. He started on an IV fluid challenge and symptomatic management then referred to the hospitalist for admission. Patient admits to binging on alcohol consuming at least 750 mL of Bacardi rum last night and last use of marijuana 24 hours ago. Patient denies other recreational drugs or [id number] medications. He denies previous DTs or seizure. Past Medical History Cardiac Medical History: Reports: Hypertension Neurological Medical History: Denies: Seizures Psychiatric Medical History: Reports: Alcohol Dependency, Substance Abuse, Tobacco Dependency Denies: Depression Social History Information Source: Patient, [facility] Records Smoking Status: Current Every Day Smoker Frequency of Alcohol Use: Heavy Hx Recreational Drug Use: Yes Drugs: Marijuana Hx Prescription Drug Abuse: No - Advance Directive Resuscitation Status: Full Code Family History Family History: None Parental Family History Reviewed: Yes Children Family History Reviewed: Yes Sibling(s) Family History Reviewed.: Yes Medication/Allergy Home Medications: No Home Medications 05/25/17 Allergies/Adverse Reactions: No Known Allergies Allergy (Verified 10/26/16 10:45) Review of Systems Constitutional: ABSENT: chills, fever(s), headache(s), weight gain, weight loss Eyes: ABSENT: visual disturbances Ears: ABSENT: hearing changes Cardiovascular: ABSENT: chest pain, dyspnea on exertion, edema, orthropnea, palpitations Respiratory: ABSENT: cough, hemoptysis Gastrointestinal: ABSENT: abdominal pain, constipation, diarrhea, hematemesis, hematochezia, nausea, vomiting Genitourinary: ABSENT: dysuria, hematuria Musculoskeletal: ABSENT: joint swelling Integumentary: ABSENT: rash, wounds Neurological: ABSENT: abnormal gait, abnormal speech, confusion, dizziness, focal weakness, syncope Psychiatric: ABSENT: anxiety, depression, homidical ideation, suicidal ideation Endocrine: ABSENT: cold intolerance, heat intolerance, polydipsia, polyuria Hematologic/Lymphatic: ABSENT: easy bleeding, easy bruising Physical Exam Vital Signs: Temp Pulse Resp BP Pulse Ox 98.6 F 100 18 141/90 H 100 05/25/17 15:50 05/25/17 15:50 05/25/17 15:50 05/25/17 15:50 05/25/17 15:50 General appearance: PRESENT: cooperative, disheveled, mild distress Head exam: PRESENT: atraumatic, normocephalic Eye exam: PRESENT: conjunctiva pink, EOMI, PERRLA. ABSENT: scleral icterus Ear exam: PRESENT: normal external ear exam Mouth exam: PRESENT: moist, tongue midline Neck exam: ABSENT: carotid bruit, JVD, lymphadenopathy, thyromegaly Respiratory exam: PRESENT: clear to auscultation ann. ABSENT: rales, rhonchi, wheezes Cardiovascular exam: PRESENT: RRR. ABSENT: diastolic murmur, rubs, systolic murmur Pulses: PRESENT: normal dorsalis pedis pul Vascular exam: PRESENT: normal capillary refill GI/Abdominal exam: PRESENT: hyperactive bowel sounds, soft, tenderness. ABSENT : ascites, diminished bowel sounds, distended, firm, guarding, rebound, rigid Rectal exam: PRESENT: deferred Extremities exam: PRESENT: full ROM. ABSENT: calf tenderness, clubbing, pedal edema Neurological exam: PRESENT: alert, altered, awake, oriented to person, oriented to place, oriented to time, oriented to situation, CN II-XII grossly intact. ABSENT: motor sensory deficit Psychiatric exam: PRESENT: anxious, normal mood. ABSENT: homicidal ideation, suicidal ideation Skin exam: PRESENT: dry, intact, warm. ABSENT: cyanosis, rash Results Laboratory Results: 05/25/17 14:16 05/25/17 05/25/17 05/25/17 14:16 14:16 14:16 Sodium 140.5 Potassium 4.6 Chloride 97 L Carbon Dioxide 20 L Anion Gap 24 H BUN 15 Creatinine 0.90 Est GFR ( Amer) > 60 Est GFR (Non-Af Amer) > 60 Glucose 257 H Serum Osmolality 298 Calcium 10.3 H Magnesium 1.8 Impressions: Abdomen/Pelvis CT 05/25/17 10:17 IMPRESSION: 1. MILD BOWEL WALL THICKENING THROUGHOUT THE COLON. THIS IS MOST LIKELY ARTIFACT DUE TO NONDISTENTION. DIFFUSE PANCOLITIS COULD BE A POSSIBILITY ALTHOUGH THERE ARE NO OTHER SIGNIFICANT INFLAMMATORY CHANGES OTHERWISE. 2. NO OTHER SIGNIFICANT OR ACUTE FINDING IN THE ABDOMEN OR PELVIS ON CT SCAN WITH IV CONTRAST. Assessment & Plan - Diagnosis (1) Alcoholic gastritis Is this a current diagnosis for this admission?: Yes Plan: Secondary to alcohol binging. Telemetry bed serial CBC evaluation of INR and IV Protonix with Carafate. Consider GI consultation (2) High anion gap metabolic acidosis Is this a current diagnosis for this admission?: Yes Plan: Secondary to alcohol abuse, D5 normal saline with supportive measures and reevaluation of chemistry (3) Alcohol abuse Is this a current diagnosis for this admission?: Yes Plan: Consider referral for outpatient rehab. And folate ordered - Time Time Spent: 50 to 70 Minutes - Inpatient Certification Medical Necessity: Need Close Monitoring Due to Risk of Patient Decompensation
[2017-05-25] MEDS: NORMAL SALINE 1000 ML 1,000 ML IV SCH ×2 (17:25→22:23)
[2017-05-25] MEDS: METRONIDAZOLE 500 MG TABLET PO SCH (17:26)
[2017-05-25] MEDS: SUCRALFATE SUSP 1 GM/10 ML UDCUP PO SCH (17:27)
[2017-05-25 18:30] LABS: HEMATOCRIT 42.1 % (37.9-51.0); HEMOGLOBIN 14.1 g/dL (13.5-17.0); MEAN CORPUSCULAR HEMOGLOBIN 30.8 pg (27.0-33.4); MEAN CORPUSCULAR HGB CONC 33.5 g/dL (32.0-36.0); MEAN CORPUSCULAR VOLUME 92 fl (80-97); PLATELET COUNT 222 10^3/uL (150-450); RED BLOOD COUNT 4.57 10^6/uL (4.35-5.55); RED CELL DISTRIBUTION WIDTH 13.3 % (11.5-14.0); WHITE BLOOD COUNT 16.4 10^3/uL (4.0-10.5)
[2017-05-25 18:51] LABS: ANION GAP 19 (5-19); BLOOD UREA NITROGEN 13 mg/dL (7-20); CALCIUM 9.6 mg/dL (8.4-10.2); CARBON DIOXIDE 21 mmol/L (22-30); CHLORIDE 101 mmol/L (98-107); GLUCOSE 147 mg/dL (75-110); POTASSIUM 4.7 mmol/L (3.6-5.0); SODIUM 140.6 mmol/L (137-145)
[2017-05-25] MEDS ORDERED: LANSOPRAZOLE 30 MG TAB.RAP.DR PO SCH (21:15)
[2017-05-25] MEDS ORDERED: CIPROFLOXACIN 400 MG/D5W RTU 400 MG/200 ML RTUPB IV SCH (22:00)
[2017-05-25] MEDS: MAGNESIUM SULFATE/D5W 1 GM/100 ML RTUPB IV SCH (22:23)
[2017-05-25] MEDS: ACETAMINOPHEN 325 MG TABLET PO PRN (22:23)
[2017-05-26 00:57] LABS: ANION GAP 13 (5-19); BLOOD UREA NITROGEN 11 mg/dL (7-20); CALCIUM 9.1 mg/dL (8.4-10.2); CARBON DIOXIDE 26 mmol/L (22-30); CHLORIDE 104 mmol/L (98-107); GLUCOSE 114 mg/dL (75-110); POTASSIUM 4.5 mmol/L (3.6-5.0); SODIUM 142.6 mmol/L (137-145)
[2017-05-26 01:12] LABS: APPEARANCE,URINE CLEAR; BILIRUBIN,URINE NEGATIVE (NEGATIVE); COLOR,URINE YELLOW; GLUCOSE, URINE NEGATIVE (NEGATIVE); KETONES,URINE 80 mg/dL (NEGATIVE); LEUKOCYTE ESTERASE,URINE NEGATIVE (NEGATIVE); NITRITE,URINE NEGATIVE (NEGATIVE); PROTEIN,URINE 30 mg/dL (NEGATIVE); URINE SPECIFIC GRAVITY 1.018; UROBILINOGEN,URINE NEGATIVE mg/dL (<2.0)
[2017-05-26] MEDS: SUCRALFATE SUSP 1 GM/10 ML UDCUP PO SCH ×2 (01:35→05:44)
[2017-05-26] MEDS: MAGNESIUM SULFATE/D5W 1 GM/100 ML RTUPB IV SCH (01:36)
[2017-05-26] MEDS: METRONIDAZOLE 500 MG TABLET PO SCH ×2 (01:36→05:44)
[2017-05-26] MEDS: HEPARIN SOD (PORCINE) 5,000 UNIT/ML 1 ML SYRINGE SUBCUT SCH ×3 (05:44→21:35)
[2017-05-26 07:28] LABS: ABSOLUTE LYMPHOCYTES (AUTO) 1.6 10^3/uL (0.5-4.7); ABSOLUTE NEUT (AUTO) 9.8 10^3/uL (1.7-8.2); BASOPHILS % (AUTO) 0.3 % (0-2); HEMATOCRIT 38.4 % (37.9-51.0); HEMOGLOBIN 12.8 g/dL (13.5-17.0); LYMPHOCYTES % (AUTO) 12.5 % (13-45); MEAN CORPUSCULAR HEMOGLOBIN 30.8 pg (27.0-33.4); MEAN CORPUSCULAR HGB CONC 33.5 g/dL (32.0-36.0); MEAN CORPUSCULAR VOLUME 92 fl (80-97); MONOCYTES % (AUTO) 8.4 % (3-13); PLATELET COUNT 204 10^3/uL (150-450); RED BLOOD COUNT 4.17 10^6/uL (4.35-5.55); RED CELL DISTRIBUTION WIDTH 13.6 % (11.5-14.0); SEGMENTED NEUTROPHILS % (AUTO) 78.8 % (42-78); TOTAL CELLS COUNTED % (AUTO) 100 %; WHITE BLOOD COUNT 12.4 10^3/uL (4.0-10.5)
[2017-05-26 07:46] LABS: ANION GAP 11 (5-19); BLOOD UREA NITROGEN 9 mg/dL (7-20); CALCIUM 8.8 mg/dL (8.4-10.2); CARBON DIOXIDE 26 mmol/L (22-30); CHLORIDE 103 mmol/L (98-107); GLUCOSE 94 mg/dL (75-110); POTASSIUM 3.9 mmol/L (3.6-5.0); SODIUM 140.1 mmol/L (137-145)
[2017-05-26] MEDS: THIAMINE HCL 100 MG TABLET PO SCH (10:16)
[2017-05-26] MEDS: MULTIVITAMIN TABLET PO SCH (10:16)
[2017-05-26] MEDS: LORAZEPAM INJ 2 MG/1 ML VIAL IV PRN ×2 (10:19→15:31)
[2017-05-26] MEDS: NORMAL SALINE 1000 ML 1,000 ML IV PRN (10:20)
[2017-05-26] MEDS: ACETAMINOPHEN 325 MG TABLET PO PRN (13:03)
[2017-05-26] MEDS: PROMETHAZINE HCL 25 MG TABLET PO PRN (13:09)
[2017-05-26] MEDS ORDERED: PANTOPRAZOLE SODIUM 40 MG VIAL IV ONE (13:32)
--- NOTE | 2017-05-26 13:58 | PDOC PROGRESS REPORT ---
Subjective Progress Note for:: 05/26/17 Subjective:: Patient reports that he feels better. I am not been able to eat because does not like what came in to tray. By the time of dictating this note the nurse reports that patient started vomiting and complains of back pain Reason For Visit: ABD PAIN,METABOLIC ACIDOSIS,COLITIS,ETOH DEP Physical Exam Vital Signs: Temp Pulse Resp BP Pulse Ox 98.6 F 82 16 124/78 99 05/26/17 00:20 05/26/17 07:00 05/26/17 00:20 05/26/17 00:20 05/26/17 00:20 Intake & Output 05/25/17 05/26/17 05/27/17 06:59 06:59 06:59 Intake Total 2090 Output Total 480 Balance 1610 Weight 68.5 kg General appearance: PRESENT: no acute distress, cooperative, well-developed, well-nourished Head exam: PRESENT: atraumatic, normocephalic Eye exam: PRESENT: EOMI, PERRLA Ear exam: PRESENT: normal external ear exam, TM's normal bilaterally Mouth exam: PRESENT: moist, neck supple Neck exam: PRESENT: full ROM. ABSENT: JVD Respiratory exam: PRESENT: clear to auscultation ann, unlabored Cardiovascular exam: PRESENT: RRR. ABSENT: diastolic murmur, systolic murmur Vascular exam: PRESENT: normal capillary refill GI/Abdominal exam: PRESENT: normal bowel sounds, soft. ABSENT: tenderness Extremities exam: PRESENT: full ROM Neurological exam: PRESENT: alert, awake, oriented to person, oriented to place , oriented to time Psychiatric exam: PRESENT: appropriate affect Results Laboratory Results: 05/26/17 07:13 05/25/17 05/25/17 05/25/17 13:20 14:16 14:16 WBC RBC Hgb Hct MCV MCH MCHC RDW Plt Count Seg Neutrophils % Lymphocytes % Monocytes % Eosinophils % Basophils % Absolute Neutrophils Absolute Lymphocytes Absolute Monocytes Absolute Eosinophils Absolute Basophils Sodium Potassium Chloride Carbon Dioxide Anion Gap BUN Creatinine Est GFR ( Amer) Est GFR (Non-Af Amer) Glucose Serum Osmolality 298 Calcium Magnesium 1.8 Urine Color YELLOW Urine Appearance CLEAR Urine pH 5.0 Ur Specific [place] 1.018 Urine Protein 30 H Urine Glucose (UA) NEGATIVE Urine Ketones 80 H Urine Blood NEGATIVE Urine Nitrite NEGATIVE Ur Leukocyte Esterase NEGATIVE Urine WBC (Auto) 1 Urine RBC (Auto) 1 05/25/17 05/25/17 05/25/17 14:16 18:19 18:19 WBC 16.4 H RBC 4.57 Hgb 14.1 Hct 42.1 MCV 92 MCH 30.8 MCHC 33.5 RDW 13.3 Plt Count 222 Seg Neutrophils % Lymphocytes % Monocytes % Eosinophils % Basophils % Absolute Neutrophils Absolute Lymphocytes Absolute Monocytes Absolute Eosinophils Absolute Basophils Sodium 140.5 140.6 Potassium 4.6 4.7 Chloride 97 L 101 Carbon Dioxide 20 L 21 L Anion Gap 24 H 19 BUN 15 13 Creatinine 0.90 0.83 Est GFR ( Amer) > 60 > 60 Est GFR (Non-Af Amer) > 60 > 60 Glucose 257 H 147 H Serum Osmolality Calcium 10.3 H 9.6 Magnesium Urine Color Urine Appearance Urine pH Ur Specific [place] Urine Protein Urine Glucose (UA) Urine Ketones Urine Blood Urine Nitrite Ur Leukocyte Esterase Urine WBC (Auto) Urine RBC (Auto) 05/26/17 05/26/17 00:18 07:13 WBC 12.4 H RBC 4.17 L Hgb 12.8 L Hct 38.4 MCV 92 MCH 30.8 MCHC 33.5 RDW 13.6 Plt Count 204 Seg Neutrophils % 78.8 H Lymphocytes % 12.5 L Monocytes % 8.4 Eosinophils % 0.0 Basophils % 0.3 Absolute Neutrophils 9.8 H Absolute Lymphocytes 1.6 Absolute Monocytes 1.0 Absolute Eosinophils 0.0 Absolute Basophils 0.0 Sodium 142.6 Potassium 4.5 Chloride 104 Carbon Dioxide 26 Anion Gap 13 BUN 11 Creatinine 0.91 Est GFR ( Amer) > 60 Est GFR (Non-Af Amer) > 60 Glucose 114 H Serum Osmolality Calcium 9.1 Magnesium Urine Color Urine Appearance Urine pH Ur Specific [place] Urine Protein Urine Glucose (UA) Urine Ketones Urine Blood Urine Nitrite Ur Leukocyte Esterase Urine WBC (Auto) Urine RBC (Auto) Impressions: Abdomen/Pelvis CT 05/25/17 10:17 IMPRESSION: 1. MILD BOWEL WALL THICKENING THROUGHOUT THE COLON. THIS IS MOST LIKELY ARTIFACT DUE TO NONDISTENTION. DIFFUSE PANCOLITIS COULD BE A POSSIBILITY ALTHOUGH THERE ARE NO OTHER SIGNIFICANT INFLAMMATORY CHANGES OTHERWISE. 2. NO OTHER SIGNIFICANT OR ACUTE FINDING IN THE ABDOMEN OR PELVIS ON CT SCAN WITH IV CONTRAST. Assessment & Plan - Diagnosis (1) Alcoholic gastritis Qualifiers: Chronicity: acute Gastritis bleeding: without bleeding Qualified Code(s) : K29.20 - Alcoholic gastritis without bleeding Is this a current diagnosis for this admission?: Yes Plan: Order lipase and place patient on Protonix IV (2) Alcohol abuse Is this a current diagnosis for this admission?: Yes Plan: Patient encouraged to quit. he may also need counseling as outpatient. (3) Colitis Is this a current diagnosis for this admission?: Yes Plan: Clinically improved. - Time Time Spent with patient: 15-24 minutes Medications reviewed and adjusted accordingly: Yes Anticipated discharge: Home Within: within 48 hours - Inpatient Certification Based on my medical assessment, after consideration of the patient's comorbidities, presenting symptoms, or acuity I expect that the services needed warrant INPATIENT care.: Yes I certify that my determination is in accordance with my understanding of Medicare's requirements for reasonable and necessary INPATIENT services [42 CFR 412.3e].: Yes Medical Necessity: Need For IV Fluids, Need for Pain Control
[2017-05-26] MEDS: ONDANSETRON HCL INJ/PF 4 MG/2 ML SDV IV PRN (14:33)
[2017-05-26] MEDS: PROMETHAZINE HCL INJ 25 MG/1 ML VIAL IV PRN (14:56)
[2017-05-26] MEDS: MORPHINE SULFATE 10 MG/ML INJ IV PRN (16:38)
[2017-05-26] MEDS: PANTOPRAZOLE SODIUM 40 MG VIAL IV SCH (17:58)
[2017-05-26] MEDS ORDERED: LORAZEPAM INJ 2 MG/1 ML VIAL IV ONE (18:15)
[2017-05-26] MEDS: NORMAL SALINE 1000 ML 1,000 ML IV SCH (21:35)
[2017-05-27] MEDS: PROMETHAZINE HCL INJ 25 MG/1 ML VIAL IV PRN (00:24)
[2017-05-27] MEDS: ONDANSETRON HCL INJ/PF 4 MG/2 ML SDV IV PRN ×3 (00:24→17:20)
[2017-05-27] MEDS: NORMAL SALINE 1000 ML 1,000 ML IV SCH (00:25)
[2017-05-27] MEDS: PANTOPRAZOLE SODIUM 40 MG VIAL IV SCH ×2 (06:18→21:57)
[2017-05-27] MEDS: HEPARIN SOD (PORCINE) 5,000 UNIT/ML 1 ML SYRINGE SUBCUT SCH ×3 (06:18→21:58)
[2017-05-27 07:09] LABS: ABSOLUTE BASOPHILS # (AUTO) 0.1 10^3/uL (0.0-0.2); ABSOLUTE LYMPHOCYTES (AUTO) 2.1 10^3/uL (0.5-4.7); ABSOLUTE MONOCYTES (AUTO) 0.8 10^3/uL (0.1-1.4); ABSOLUTE NEUT (AUTO) 5.9 10^3/uL (1.7-8.2); BASOPHILS % (AUTO) 0.7 % (0-2); EOSINOPHILS % (AUTO) 0.1 % (0-6); HEMATOCRIT 36.8 % (37.9-51.0); HEMOGLOBIN 12.2 g/dL (13.5-17.0); LYMPHOCYTES % (AUTO) 23.3 % (13-45); MEAN CORPUSCULAR HEMOGLOBIN 31.2 pg (27.0-33.4); MEAN CORPUSCULAR HGB CONC 33.2 g/dL (32.0-36.0); MEAN CORPUSCULAR VOLUME 94 fl (80-97); MONOCYTES % (AUTO) 8.7 % (3-13); PLATELET COUNT 188 10^3/uL (150-450); RED BLOOD COUNT 3.92 10^6/uL (4.35-5.55); RED CELL DISTRIBUTION WIDTH 13.5 % (11.5-14.0); SEGMENTED NEUTROPHILS % (AUTO) 67.2 % (42-78); TOTAL CELLS COUNTED % (AUTO) 100 %; WHITE BLOOD COUNT 8.8 10^3/uL (4.0-10.5)
[2017-05-27 07:42] LABS: ANION GAP 12 (5-19); BLOOD UREA NITROGEN 7 mg/dL (7-20); CALCIUM 8.7 mg/dL (8.4-10.2); CARBON DIOXIDE 24 mmol/L (22-30); CHLORIDE 105 mmol/L (98-107); GLUCOSE 82 mg/dL (75-110); LIPASE 96.1 U/L (23-300); MAGNESIUM 2.3 mg/dL (1.6-2.3); POTASSIUM 4.1 mmol/L (3.6-5.0); SODIUM 140.9 mmol/L (137-145)
[2017-05-27] MEDS: NORMAL SALINE 1000 ML 1,000 ML IV PRN (08:02)
[2017-05-27] MEDS: MULTIVITAMIN TABLET PO SCH (09:44)
[2017-05-27] MEDS: THIAMINE HCL 100 MG TABLET PO SCH (09:44)
[2017-05-27] MEDS ORDERED: LANSOPRAZOLE 30 MG TAB.RAP.DR PO SCH (10:00)
[2017-05-27] MEDS ORDERED: PROMETHAZINE HCL 25 MG TABLET PO PRN (11:11)
[2017-05-27] MEDS: LORAZEPAM INJ 2 MG/1 ML VIAL IV PRN ×3 (12:05→21:57)
[2017-05-27] MEDS: MORPHINE SULFATE 10 MG/ML INJ IV PRN (12:28)
--- NOTE | 2017-05-27 12:34 | EKG REPORT ---
SEVERITY:- ABNORMAL ECG - SINUS RHYTHM ST ELEVATION SUGGESTS PERICARDITIS : Confirmed by: Keily Zimmerman MD 27-May-2017 12:33:25
--- NOTE | 2017-05-27 14:38 | PDOC PROGRESS REPORT ---
Subjective Progress Note for:: 05/27/17 Subjective:: Patient reports that he is afraid of eating after the incident of vomiting when tried eating strawberries yesterday. Patient also complaining of pain and had been refusing oral medications. Nurse reported vomiting and that it appears that he had experienced similar episodes in the past when he starts vomiting. Reason For Visit: ABD PAIN,METABOLIC ACIDOSIS,COLITIS,ETOH DEP Physical Exam Vital Signs: Temp Pulse Resp BP Pulse Ox 98.5 F 87 16 130/85 H 99 05/27/17 03:48 05/27/17 03:48 05/27/17 03:48 05/27/17 03:48 05/27/17 03:48 Intake & Output 05/26/17 05/27/17 05/28/17 06:59 06:59 06:59 Intake Total 2090 3540 Output Total 480 1125 Balance 1610 2415 Weight 68.5 kg 68.5 kg General appearance: PRESENT: no acute distress, cooperative Head exam: PRESENT: atraumatic, normocephalic Eye exam: PRESENT: EOMI, PERRLA Ear exam: PRESENT: normal external ear exam Mouth exam: PRESENT: moist Neck exam: PRESENT: full ROM, tenderness. ABSENT: JVD Respiratory exam: PRESENT: clear to auscultation ann Cardiovascular exam: PRESENT: RRR. ABSENT: diastolic murmur, systolic murmur Vascular exam: PRESENT: normal capillary refill GI/Abdominal exam: PRESENT: normal bowel sounds, soft. ABSENT: tenderness Extremities exam: PRESENT: full ROM. ABSENT: joint swelling, pedal edema Neurological exam: PRESENT: alert, awake, oriented to person, oriented to place , oriented to time Psychiatric exam: PRESENT: anxious Skin exam: PRESENT: normal color Results Laboratory Results: 05/26/17 05/26/17 05/26/17 07:13 07:13 07:13 WBC 12.4 H RBC 4.17 L Hgb 12.8 L Hct 38.4 MCV 92 MCH 30.8 MCHC 33.5 RDW 13.6 Plt Count 204 Seg Neutrophils % 78.8 H Lymphocytes % 12.5 L Monocytes % 8.4 Eosinophils % 0.0 Basophils % 0.3 Absolute Neutrophils 9.8 H Absolute Lymphocytes 1.6 Absolute Monocytes 1.0 Absolute Eosinophils 0.0 Absolute Basophils 0.0 Sodium 140.1 Potassium 3.9 Chloride 103 Carbon Dioxide 26 Anion Gap 11 BUN 9 Creatinine 0.80 Est GFR ( Amer) > 60 Est GFR (Non-Af Amer) > 60 Glucose 94 Calcium 8.8 Lipase 55.7 Impressions: Abdomen/Pelvis CT 05/25/17 10:17 IMPRESSION: 1. MILD BOWEL WALL THICKENING THROUGHOUT THE COLON. THIS IS MOST LIKELY ARTIFACT DUE TO NONDISTENTION. DIFFUSE PANCOLITIS COULD BE A POSSIBILITY ALTHOUGH THERE ARE NO OTHER SIGNIFICANT INFLAMMATORY CHANGES OTHERWISE. 2. NO OTHER SIGNIFICANT OR ACUTE FINDING IN THE ABDOMEN OR PELVIS ON CT SCAN WITH IV CONTRAST. Assessment & Plan - Diagnosis (1) Alcoholic gastritis Qualifiers: Chronicity: acute Gastritis bleeding: without bleeding Qualified Code(s) : K29.20 - Alcoholic gastritis without bleeding Is this a current diagnosis for this admission?: Yes Plan: Discontinue Protonix IV and place on oral. (2) Alcohol abuse Is this a current diagnosis for this admission?: Yes Plan: Patient encouraged to quit. He may also need counseling as outpatient. (3) Colitis Is this a current diagnosis for this admission?: Yes Plan: Clinically improved. (5) Vomiting Qualifiers: Vomiting Intractability: unspecified Nausea presence: without nausea Is this a current diagnosis for this admission?: Yes Plan: Suspect the patient might be having cyclical vomiting. Will order a barium swallow. Will treat with Benadryl IV and Zyprexa IM. - Time Time Spent with patient: 15-24 minutes Medications reviewed and adjusted accordingly: Yes Anticipated discharge: Home Within: within 48 hours - Inpatient Certification Based on my medical assessment, after consideration of the patient's comorbidities, presenting symptoms, or acuity I expect that the services needed warrant INPATIENT care.: Yes I certify that my determination is in accordance with my understanding of Medicare's requirements for reasonable and necessary INPATIENT services [42 CFR 412.3e].: Yes Medical Necessity: Need For IV Fluids, Other - Antiemetics
[2017-05-27] MEDS ORDERED: DIPHENHYDRAMINE HCL 50 MG/ML VIAL IV PRN (15:43)
[2017-05-27] MEDS: POTASSI CL 20 MEQ/D5-1/2NS 1L 1,000 ML IV PRN (16:43)
[2017-05-27] MEDS: OLANZAPINE INJ/PF 10 MG SDV IM SCH (21:57)
[2017-05-28] MEDS: POTASSI CL 20 MEQ/D5-1/2NS 1L 1,000 ML IV PRN ×3 (02:00→22:13)
[2017-05-28] MEDS: HEPARIN SOD (PORCINE) 5,000 UNIT/ML 1 ML SYRINGE SUBCUT SCH ×3 (07:45→22:13)
[2017-05-28] MEDS: PANTOPRAZOLE SODIUM 40 MG VIAL IV SCH ×2 (09:42→22:13)
--- NOTE | 2017-05-28 14:20 | PDOC PROGRESS REPORT ---
Subjective Progress Note for:: 05/28/17 Subjective:: Patient was covered with his blanket up to the top of his head as usual. When inquired how he was doing he became very upset and started cursing. He wanted a different physician because he was being forced to eat. According to nursing report patient care complaining that people would go into his room and keep wanting for him to eat but he was nauseated. Interestingly nobody had been into his room requesting him to eat. Reason For Visit: ABD PAIN,METABOLIC ACIDOSIS,COLITIS,ETOH DEP Physical Exam Vital Signs: Temp Pulse Resp BP Pulse Ox 98.3 F 89 16 138/76 H 96 05/28/17 04:00 05/28/17 00:00 05/28/17 00:00 05/28/17 00:00 05/28/17 00:00 Intake & Output 05/27/17 05/28/17 05/29/17 06:59 06:59 06:59 Intake Total 3540 3738 Output Total 1125 700 Balance 2415 3038 Weight 68.5 kg 67.3 kg Additional comments: Patient refused to be examined Results Laboratory Results: 05/27/17 06:08 05/27/17 06:08 05/27/17 06:08 Sodium 140.9 Potassium 4.1 Chloride 105 Carbon Dioxide 24 Anion Gap 12 BUN 7 Creatinine 0.80 Est GFR ( Amer) > 60 Est GFR (Non-Af Amer) > 60 Glucose 82 Calcium 8.7 Magnesium 2.3 Lipase 96.1 Impressions: Abdomen/Pelvis CT 05/25/17 10:17 IMPRESSION: 1. MILD BOWEL WALL THICKENING THROUGHOUT THE COLON. THIS IS MOST LIKELY ARTIFACT DUE TO NONDISTENTION. DIFFUSE PANCOLITIS COULD BE A POSSIBILITY ALTHOUGH THERE ARE NO OTHER SIGNIFICANT INFLAMMATORY CHANGES OTHERWISE. 2. NO OTHER SIGNIFICANT OR ACUTE FINDING IN THE ABDOMEN OR PELVIS ON CT SCAN WITH IV CONTRAST. Assessment & Plan - Diagnosis (1) Alcoholic gastritis Qualifiers: Chronicity: acute Gastritis bleeding: without bleeding Qualified Code(s) : K29.20 - Alcoholic gastritis without bleeding Is this a current diagnosis for this admission?: Yes Plan: Patient refuses to take anything by mouth and to continue Protonix IV (2) Alcohol abuse Is this a current diagnosis for this admission?: Yes Plan: Patient had beenencouraged to quit. He may also need counseling as outpatient. (3) Colitis Is this a current diagnosis for this admission?: No Plan: Ruled out (4) Vomiting Qualifiers: Vomiting Intractability: unspecified Nausea presence: without nausea Is this a current diagnosis for this admission?: Yes Plan: Suspect the patient might be having cyclical vomiting. Barium swallow scheduled for tomorrow. Will continue Zyprexa since also suspect a psychiatric component and will improve nausea and appetite. Continue IV fluids. Patient had been advised that his care will be taken over in the morning by another physician - Time Time Spent with patient: Less than 15 minutes Medications reviewed and adjusted accordingly: Yes Anticipated discharge: Home - Inpatient Certification Based on my medical assessment, after consideration of the patient's comorbidities, presenting symptoms, or acuity I expect that the services needed warrant INPATIENT care.: Yes I certify that my determination is in accordance with my understanding of Medicare's requirements for reasonable and necessary INPATIENT services [42 CFR 412.3e].: Yes Medical Necessity: Need For IV Fluids, Other
[2017-05-28] MEDS: OLANZAPINE INJ/PF 10 MG SDV IM SCH (22:13)
[2017-05-29 04:58] LABS: ABSOLUTE EOSINOPHILS # (AUTO) 0.1 10^3/uL (0.0-0.6); ABSOLUTE LYMPHOCYTES (AUTO) 2.3 10^3/uL (0.5-4.7); ABSOLUTE MONOCYTES (AUTO) 0.5 10^3/uL (0.1-1.4); ABSOLUTE NEUT (AUTO) 2.5 10^3/uL (1.7-8.2); BASOPHILS % (AUTO) 0.8 % (0-2); EOSINOPHILS % (AUTO) 1.1 % (0-6); HEMATOCRIT 38.3 % (37.9-51.0); HEMOGLOBIN 13.1 g/dL (13.5-17.0); LYMPHOCYTES % (AUTO) 42.2 % (13-45); MEAN CORPUSCULAR HEMOGLOBIN 31.5 pg (27.0-33.4); MEAN CORPUSCULAR HGB CONC 34.2 g/dL (32.0-36.0); MEAN CORPUSCULAR VOLUME 92 fl (80-97); MONOCYTES % (AUTO) 9.7 % (3-13); PLATELET COUNT 201 10^3/uL (150-450); RED BLOOD COUNT 4.16 10^6/uL (4.35-5.55); RED CELL DISTRIBUTION WIDTH 13.1 % (11.5-14.0); SEGMENTED NEUTROPHILS % (AUTO) 46.2 % (42-78); TOTAL CELLS COUNTED % (AUTO) 100 %; WHITE BLOOD COUNT 5.4 10^3/uL (4.0-10.5)
[2017-05-29] MEDS: HEPARIN SOD (PORCINE) 5,000 UNIT/ML 1 ML SYRINGE SUBCUT SCH ×3 (05:11→22:10)
[2017-05-29 05:20] LABS: ALANINE AMINOTRANSFERASE 46 U/L (21-72); ALBUMIN 3.8 g/dL (3.5-5.0); ALKALINE PHOSPHATASE 48 U/L (38-126); ANION GAP 6 (5-19); ASPARTATE AMINO TRANSFERASE 50 U/L (17-59); BILIRUBIN,DIRECT 0.2 mg/dL (0.0-0.4); BILIRUBIN,TOTAL 0.4 mg/dL (0.2-1.3); BLOOD UREA NITROGEN 5 mg/dL (7-20); CALCIUM 9.3 mg/dL (8.4-10.2); CARBON DIOXIDE 29 mmol/L (22-30); CHLORIDE 107 mmol/L (98-107); GLUCOSE 86 mg/dL (75-110); POTASSIUM 3.6 mmol/L (3.6-5.0); SODIUM 141.9 mmol/L (137-145); TOTAL PROTEIN 6.3 g/dL (6.3-8.2)
[2017-05-29] MEDS: PANTOPRAZOLE SODIUM 40 MG VIAL IV SCH ×2 (08:57→22:10)
[2017-05-29] MEDS: ONDANSETRON HCL INJ/PF 4 MG/2 ML SDV IV PRN (08:57)
[2017-05-29] MEDS: MORPHINE SULFATE 10 MG/ML INJ IV PRN ×2 (09:02→13:25)
[2017-05-29] MEDS: LORAZEPAM INJ 2 MG/1 ML VIAL IV PRN ×2 (10:44→17:20)
[2017-05-29] MEDS: POTASSI CL 20 MEQ/D5-1/2NS 1L 1,000 ML IV PRN ×2 (10:44→17:15)
--- NOTE | 2017-05-29 13:42 | RADIOLOGY REPORT (SQ) ---
EXAM DESCRIPTION: BARIUM SWALLOW ESOPHAGUS COMPLETED DATE/TIME: 05/29/2017 8:37 am REASON FOR STUDY: vomiting/epigastric pain dysphagia COMPARISON: CT abdomen 05/25/2017 TECHNIQUE: Under fluoroscopic guidance, patient ingested effervescent granules followed by thick and thin barium. Fluoroscopic spot images and routine radiographic images acquired and stored on PACS. 12 MM BARIUM TABLET GIVEN: Yes. No significant delay in passage. LIMITATIONS: None. FLUOROSCOPY TIME: FLUORO TIME: 0.6 minutes 7 fluoroscopy images saved to PACS. FINDINGS: NEUROMUSCULAR COORDINATION OF SWALLOW: Normal. No aspiration. ESOPHAGEAL MOTILITY: Normal primary peristalsis. No esophageal spasm. ESOPHAGEAL MUCOSA: Normal mucosa without masses or ulceration. GASTRO-ESOPHAGEAL JUNCTION: No hiatal hernia. Moderate gastroesophageal reflux extending to the mid esophagus. NON-GI TRACT STRUCTURES: No significant finding. OTHER: No other significant finding. IMPRESSION: MODERATE GASTROESOPHAGEAL REFLUX OTHERWISE, NORMAL DOUBLE CONTRAST BARIUM SWALLOW. COMMENT: Quality ID [id number]: Final reports for procedures using fluoroscopy that document radiation exp osure indices, or exposure time and number of fluorographic images (if radiation exposure indices are not available) TECHNICAL DOCUMENTATION: JOB ID: [id number] [employer]- All Rights Reserved
[2017-05-29] MEDS: METOCLOPRAMIDE HCL INJ/PF 10 MG/2 ML SDV IV SCH ×2 (16:55→23:27)
--- NOTE | 2017-05-29 17:22 | PDOC PROGRESS REPORT ---
Subjective Reason For Visit: ABD PAIN,METABOLIC ACIDOSIS,COLITIS,ETOH DEP Physical Exam Vital Signs: Temp Pulse Resp BP Pulse Ox 98.9 F 84 16 109/81 100 05/29/17 00:20 05/29/17 00:20 05/29/17 00:20 05/29/17 00:20 05/29/17 00:20 Intake & Output 05/28/17 05/29/17 05/30/17 06:59 06:59 06:59 Intake Total 3738 2620 Output Total 700 850 Balance 3038 1770 Weight 67.3 kg 67.3 kg Results Laboratory Results: 05/29/17 04:36 05/29/17 04:36 05/29/17 05/29/17 04:36 04:36 WBC 5.4 RBC 4.16 L Hgb 13.1 L Hct 38.3 MCV 92 MCH 31.5 MCHC 34.2 RDW 13.1 Plt Count 201 Seg Neutrophils % 46.2 Lymphocytes % 42.2 Monocytes % 9.7 Eosinophils % 1.1 Basophils % 0.8 Absolute Neutrophils 2.5 Absolute Lymphocytes 2.3 Absolute Monocytes 0.5 Absolute Eosinophils 0.1 Absolute Basophils 0.0 Sodium 141.9 Potassium 3.6 Chloride 107 Carbon Dioxide 29 Anion Gap 6 BUN 5 L Creatinine 0.83 Est GFR ( Amer) > 60 Est GFR (Non-Af Amer) > 60 Glucose 86 Calcium 9.3 Total Bilirubin 0.4 AST 50 ALT 46 Alkaline Phosphatase 48 Total Protein 6.3 Albumin 3.8 Impressions: Abdomen/Pelvis CT 05/25/17 10:17 IMPRESSION: 1. MILD BOWEL WALL THICKENING THROUGHOUT THE COLON. THIS IS MOST LIKELY ARTIFACT DUE TO NONDISTENTION. DIFFUSE PANCOLITIS COULD BE A POSSIBILITY ALTHOUGH THERE ARE NO OTHER SIGNIFICANT INFLAMMATORY CHANGES OTHERWISE. 2. NO OTHER SIGNIFICANT OR ACUTE FINDING IN THE ABDOMEN OR PELVIS ON CT SCAN WITH IV CONTRAST. Esophagus X-Ray 05/29/17 00:00 IMPRESSION: MODERATE GASTROESOPHAGEAL REFLUX OTHERWISE, NORMAL DOUBLE CONTRAST BARIUM SWALLOW. Assessment & Plan - Diagnosis (1) Intractable vomiting Qualifiers: Vomiting type: unspecified Nausea presence: with nausea Qualified Code(s) : R11.2 - Nausea with vomiting, unspecified Is this a current diagnosis for this admission?: Yes Plan: The patient had an esophagram that looked normal. It may be related to alcoholic gastritis however he continues to have symptoms and we will start on Reglan in case there is any component of gastroparesis. (2) Alcoholic gastritis Qualifiers: Chronicity: acute Gastritis bleeding: without bleeding Qualified Code(s) : K29.20 - Alcoholic gastritis without bleeding Is this a current diagnosis for this admission?: Yes Plan: We will continue with the proton pump inhibitor (3) Alcohol abuse Is this a current diagnosis for this admission?: Yes Plan: No evidence for delirium tremens (4) Colitis Is this a current diagnosis for this admission?: No Plan: This was ruled out - Time Time Spent with patient: 25-34 minutes - Inpatient Certification Medical Necessity: Need Close Monitoring Due to Risk of Patient Decompensation, Need For IV Fluids
[2017-05-29] MEDS: OLANZAPINE INJ/PF 10 MG SDV IM SCH (22:10)
[2017-05-30 05:34] LABS: ABSOLUTE LYMPHOCYTES (AUTO) 1.7 10^3/uL (0.5-4.7); ABSOLUTE MONOCYTES (AUTO) 0.7 10^3/uL (0.1-1.4); ABSOLUTE NEUT (AUTO) 3.7 10^3/uL (1.7-8.2); BASOPHILS % (AUTO) 0.5 % (0-2); EOSINOPHILS % (AUTO) 0.8 % (0-6); HEMATOCRIT 41.6 % (37.9-51.0); HEMOGLOBIN 14.2 g/dL (13.5-17.0); LYMPHOCYTES % (AUTO) 27.7 % (13-45); MEAN CORPUSCULAR HEMOGLOBIN 31.1 pg (27.0-33.4); MEAN CORPUSCULAR HGB CONC 34.2 g/dL (32.0-36.0); MEAN CORPUSCULAR VOLUME 91 fl (80-97); MONOCYTES % (AUTO) 11.6 % (3-13); PLATELET COUNT 221 10^3/uL (150-450); RED BLOOD COUNT 4.56 10^6/uL (4.35-5.55); RED CELL DISTRIBUTION WIDTH 13.1 % (11.5-14.0); SEGMENTED NEUTROPHILS % (AUTO) 59.4 % (42-78); TOTAL CELLS COUNTED % (AUTO) 100 %; WHITE BLOOD COUNT 6.2 10^3/uL (4.0-10.5)
[2017-05-30] MEDS: METOCLOPRAMIDE HCL INJ/PF 10 MG/2 ML SDV IV SCH ×4 (05:52→23:16)
[2017-05-30] MEDS: HEPARIN SOD (PORCINE) 5,000 UNIT/ML 1 ML SYRINGE SUBCUT SCH ×3 (05:52→21:32)
[2017-05-30 05:56] LABS: ANION GAP 13 (5-19); BLOOD UREA NITROGEN 5 mg/dL (7-20); CALCIUM 9.9 mg/dL (8.4-10.2); CARBON DIOXIDE 27 mmol/L (22-30); CHLORIDE 102 mmol/L (98-107); GLUCOSE 102 mg/dL (75-110); POTASSIUM 3.7 mmol/L (3.6-5.0); SODIUM 141.9 mmol/L (137-145)
[2017-05-30] MEDS: POTASSI CL 20 MEQ/D5-1/2NS 1L 1,000 ML IV PRN ×2 (07:22→18:04)
[2017-05-30] MEDS: MORPHINE SULFATE 10 MG/ML INJ IV PRN ×2 (07:42→15:38)
[2017-05-30] MEDS: ONDANSETRON HCL INJ/PF 4 MG/2 ML SDV IV PRN (07:47)
[2017-05-30] MEDS ORDERED: PROMETHAZINE HCL 25 MG SUPP.RECT PR PRN (08:52)
[2017-05-30] MEDS: PANTOPRAZOLE SODIUM 40 MG VIAL IV SCH (10:06)
--- NOTE | 2017-05-30 14:50 | PDOC PROGRESS REPORT ---
Subjective Progress Note for:: 05/30/17 Subjective:: Continues with nausea and vomiting. Patient refused physical exam today Reason For Visit: ABD PAIN,METABOLIC ACIDOSIS,COLITIS,ETOH DEP Physical Exam Vital Signs: Temp Pulse Resp BP Pulse Ox 98.9 F 108 H 12 115/75 100 05/30/17 08:00 05/30/17 08:00 05/30/17 08:00 05/30/17 08:00 05/30/17 08:00 Intake & Output 05/29/17 05/30/17 05/31/17 06:59 06:59 06:59 Intake Total 2620 1365 Output Total 850 1250 Balance 1770 115 Weight 67.3 kg 67.3 kg Results Laboratory Results: 05/30/17 04:59 05/30/17 04:59 05/30/17 05/30/17 04:59 04:59 WBC 6.2 RBC 4.56 Hgb 14.2 Hct 41.6 MCV 91 MCH 31.1 MCHC 34.2 RDW 13.1 Plt Count 221 Seg Neutrophils % 59.4 Lymphocytes % 27.7 Monocytes % 11.6 Eosinophils % 0.8 Basophils % 0.5 Absolute Neutrophils 3.7 Absolute Lymphocytes 1.7 Absolute Monocytes 0.7 Absolute Eosinophils 0.0 Absolute Basophils 0.0 Sodium 141.9 Potassium 3.7 Chloride 102 Carbon Dioxide 27 Anion Gap 13 BUN 5 L Creatinine 0.82 Est GFR ( Amer) > 60 Est GFR (Non-Af Amer) > 60 Glucose 102 Calcium 9.9 Impressions: Abdomen/Pelvis CT 05/25/17 10:17 IMPRESSION: 1. MILD BOWEL WALL THICKENING THROUGHOUT THE COLON. THIS IS MOST LIKELY ARTIFACT DUE TO NONDISTENTION. DIFFUSE PANCOLITIS COULD BE A POSSIBILITY ALTHOUGH THERE ARE NO OTHER SIGNIFICANT INFLAMMATORY CHANGES OTHERWISE. 2. NO OTHER SIGNIFICANT OR ACUTE FINDING IN THE ABDOMEN OR PELVIS ON CT SCAN WITH IV CONTRAST. Esophagus X-Ray 05/29/17 00:00 IMPRESSION: MODERATE GASTROESOPHAGEAL REFLUX OTHERWISE, NORMAL DOUBLE CONTRAST BARIUM SWALLOW. Assessment & Plan - Diagnosis (1) Intractable vomiting Qualifiers: Vomiting type: unspecified Nausea presence: with nausea Qualified Code(s) : R11.2 - Nausea with vomiting, unspecified Is this a current diagnosis for this admission?: Yes Plan: It may be related to alcoholic gastritis however he continues to have symptoms in spite of being started on Reglan. Will consult gastroenterology. (2) Alcoholic gastritis Qualifiers: Chronicity: acute Gastritis bleeding: without bleeding Qualified Code(s) : K29.20 - Alcoholic gastritis without bleeding Is this a current diagnosis for this admission?: Yes Plan: We will continue with the proton pump inhibitor (3) Alcohol abuse Is this a current diagnosis for this admission?: Yes Plan: No evidence for delirium tremens (4) Colitis Is this a current diagnosis for this admission?: No Plan: This was ruled out - Time Time Spent with patient: 25-34 minutes - Inpatient Certification Medical Necessity: Need For IV Fluids
--- NOTE | 2017-05-30 16:03 | PDOC PROGRESS REPORT ---
Subjective Progress Note for:: 05/30/17 Subjective:: asked to see patient patient refused to be seen and declines any procedure that would help with the diagnosis would be happy to see if he were to change his mind Reason For Visit: ABD PAIN,METABOLIC ACIDOSIS,COLITIS,ETOH DEP Physical Exam Vital Signs: Temp Pulse Resp BP Pulse Ox 98.9 F 108 H 12 115/75 100 05/30/17 08:00 05/30/17 08:00 05/30/17 08:00 05/30/17 08:00 05/30/17 08:00 Intake & Output 05/29/17 05/30/17 05/31/17 06:59 06:59 06:59 Intake Total 2620 1365 Output Total 850 1250 Balance 1770 115 Weight 67.3 kg 67.3 kg Results Laboratory Results: 05/30/17 04:59 05/30/17 04:59 05/30/17 05/30/17 04:59 04:59 WBC 6.2 RBC 4.56 Hgb 14.2 Hct 41.6 MCV 91 MCH 31.1 MCHC 34.2 RDW 13.1 Plt Count 221 Seg Neutrophils % 59.4 Lymphocytes % 27.7 Monocytes % 11.6 Eosinophils % 0.8 Basophils % 0.5 Absolute Neutrophils 3.7 Absolute Lymphocytes 1.7 Absolute Monocytes 0.7 Absolute Eosinophils 0.0 Absolute Basophils 0.0 Sodium 141.9 Potassium 3.7 Chloride 102 Carbon Dioxide 27 Anion Gap 13 BUN 5 L Creatinine 0.82 Est GFR ( Amer) > 60 Est GFR (Non-Af Amer) > 60 Glucose 102 Calcium 9.9 Impressions: Abdomen/Pelvis CT 05/25/17 10:17 IMPRESSION: 1. MILD BOWEL WALL THICKENING THROUGHOUT THE COLON. THIS IS MOST LIKELY ARTIFACT DUE TO NONDISTENTION. DIFFUSE PANCOLITIS COULD BE A POSSIBILITY ALTHOUGH THERE ARE NO OTHER SIGNIFICANT INFLAMMATORY CHANGES OTHERWISE. 2. NO OTHER SIGNIFICANT OR ACUTE FINDING IN THE ABDOMEN OR PELVIS ON CT SCAN WITH IV CONTRAST. Esophagus X-Ray 05/29/17 00:00 IMPRESSION: MODERATE GASTROESOPHAGEAL REFLUX OTHERWISE, NORMAL DOUBLE CONTRAST BARIUM SWALLOW.
[2017-05-30] MEDS: OLANZAPINE INJ/PF 10 MG SDV IM SCH (21:32)
[2017-05-31 02:17] VITALS: BP 121/92
[2017-05-31] MEDS: POTASSI CL 20 MEQ/D5-1/2NS 1L 1,000 ML IV PRN (05:06)
[2017-05-31] MEDS: METOCLOPRAMIDE HCL INJ/PF 10 MG/2 ML SDV IV SCH (05:06)
[2017-05-31] MEDS: HEPARIN SOD (PORCINE) 5,000 UNIT/ML 1 ML SYRINGE SUBCUT SCH (05:07)
[2017-05-31 05:30] LABS: ABSOLUTE LYMPHOCYTES (AUTO) 2.9 10^3/uL (0.5-4.7); ABSOLUTE MONOCYTES (AUTO) 0.6 10^3/uL (0.1-1.4); ABSOLUTE NEUT (AUTO) 3.3 10^3/uL (1.7-8.2); BASOPHILS % (AUTO) 0.5 % (0-2); EOSINOPHILS % (AUTO) 0.7 % (0-6); HEMATOCRIT 39.4 % (37.9-51.0); HEMOGLOBIN 13.3 g/dL (13.5-17.0); LYMPHOCYTES % (AUTO) 42.2 % (13-45); MEAN CORPUSCULAR HEMOGLOBIN 31.1 pg (27.0-33.4); MEAN CORPUSCULAR HGB CONC 33.8 g/dL (32.0-36.0); MEAN CORPUSCULAR VOLUME 92 fl (80-97); MONOCYTES % (AUTO) 9.3 % (3-13); PLATELET COUNT 240 10^3/uL (150-450); RED BLOOD COUNT 4.28 10^6/uL (4.35-5.55); RED CELL DISTRIBUTION WIDTH 13.3 % (11.5-14.0); SEGMENTED NEUTROPHILS % (AUTO) 47.3 % (42-78); TOTAL CELLS COUNTED % (AUTO) 100 %
[2017-05-31 05:47] LABS: ANION GAP 11 (5-19); BLOOD UREA NITROGEN 9 mg/dL (7-20); CALCIUM 9.8 mg/dL (8.4-10.2); CARBON DIOXIDE 26 mmol/L (22-30); CHLORIDE 104 mmol/L (98-107); GLUCOSE 95 mg/dL (75-110); POTASSIUM 3.6 mmol/L (3.6-5.0); SODIUM 141.3 mmol/L (137-145)
--- NOTE | 2017-05-31 12:31 | PDOC DISCHARGE SUMMARY ---
General - Admit/Disc Date/PCP Admission Date/Primary Care Provider: 05/25/17 12:13 Discharge Date: 05/31/17 - Discharge Diagnosis (1) Intractable vomiting Is this a current diagnosis for this admission?: Yes Summary: Resolved with Reglan (2) Alcoholic gastritis Is this a current diagnosis for this admission?: Yes (3) Alcohol abuse Is this a current diagnosis for this admission?: Yes (4) Colitis Is this a current diagnosis for this admission?: No - Additional Information Resuscitation Status: Full Code Discharge Diet: Regular Discharge Activity: Activity As Tolerated Prescriptions: Metoclopramide HCl [Reglan] 5 mg PO Q6HP PRN #20 tablet PRN Reason: For Nausea/Vomiting Promethazine HCl [Phenergan 25 mg Tablet] 25 - 50 mg PO ASDIR PRN #12 tablet PRN Reason: Home Medications: Metoclopramide HCl [Reglan] 5 mg PO Q6HP PRN #20 tablet 05/31/17 Promethazine HCl [Phenergan 25 mg Tablet] 25 - 50 mg PO ASDIR PRN #12 tablet 09/12 History of Present Illness History of Present Illness: JOSE DODGE is a 31 year old male who has a history of gastritis, alcohol and tobacco abuse who presented with a 12 hour history of epigastric abdominal pain and vomiting. Patient was intoxicated when he presented. The patient admitted to binging on alcohol of 750 cc of rum prior to presentation. Hospital Course Hospital Course: 31-year-old male who presented with nausea vomiting and presumed to be alcohol gastritis. He was treated with IV fluids but continued to have symptoms. He was started on Reglan and had improvement in his symptoms but continued to have some nausea. I suggested that he be evaluated by GI however he refused. The patient during his hospitalization refused to allow me to examine him at any time. He improved with the Reglan and was tolerating p.o. and asked to go home. Will send him home with Reglan and Phenergan to use as needed. He is instructed to stop using alcohol, marijuana and tobacco. Physical Exam Vital Signs: Temp Pulse Resp BP Pulse Ox 98.8 F 109 H 17 121/92 H 99 05/31/17 08:52 05/31/17 08:52 05/31/17 08:52 05/31/17 08:52 05/31/17 08:52 Intake & Output 05/30/17 05/31/17 06/01/17 06:59 06:59 06:59 Intake Total 1365 Output Total 1250 Balance 115 Weight 67.3 kg 62.4 kg General appearance: PRESENT: no acute distress Psychiatric exam: PRESENT: appropriate affect Results Laboratory Results: 05/31/17 04:27 05/31/17 04:27 05/31/17 05/31/17 04:27 04:27 WBC 7.0 RBC 4.28 L Hgb 13.3 L Hct 39.4 MCV 92 MCH 31.1 MCHC 33.8 RDW 13.3 Plt Count 240 Seg Neutrophils % 47.3 Lymphocytes % 42.2 Monocytes % 9.3 Eosinophils % 0.7 Basophils % 0.5 Absolute Neutrophils 3.3 Absolute Lymphocytes 2.9 Absolute Monocytes 0.6 Absolute Eosinophils 0.0 Absolute Basophils 0.0 Sodium 141.3 Potassium 3.6 Chloride 104 Carbon Dioxide 26 Anion Gap 11 BUN 9 Creatinine 0.99 Est GFR ( Amer) > 60 Est GFR (Non-Af Amer) > 60 Glucose 95 Calcium 9.8 Impressions: Abdomen/Pelvis CT 05/25/17 10:17 IMPRESSION: 1. MILD BOWEL WALL THICKENING THROUGHOUT THE COLON. THIS IS MOST LIKELY ARTIFACT DUE TO NONDISTENTION. DIFFUSE PANCOLITIS COULD BE A POSSIBILITY ALTHOUGH THERE ARE NO OTHER SIGNIFICANT INFLAMMATORY CHANGES OTHERWISE. 2. NO OTHER SIGNIFICANT OR ACUTE FINDING IN THE ABDOMEN OR PELVIS ON CT SCAN WITH IV CONTRAST. Esophagus X-Ray 05/29/17 00:00 IMPRESSION: MODERATE GASTROESOPHAGEAL REFLUX OTHERWISE, NORMAL DOUBLE CONTRAST BARIUM SWALLOW. Qualifiers PATEINT BEING DISCHARGED WITH ANY OF THE FOLLOWING DIAGNOSIS?: No Plan Discharge Plan: Patient is discharged home. Follow with primary care in 2 weeks. Time Spent: Less than 30 Minutes
== END 2017-05-31 08:54 | disposition home or self-care (01) | DRG 392 ==
LOC: ER 08:51 → EH 12:13 → 4N 14:54
PROVIDERS: ADMIT Internal Medicine; ATTEND Internal Medicine
PROC: 3E0234Z Introduction of Serum, Toxoid and Vaccine into Muscle, Percutaneous Approach (ICD-10-PCS; principal; 2017-05-25)
DX: K29.20 Alcoholic gastritis without bleeding (principal); E87.2 Acidosis; K51.00 Ulcerative (chronic) pancolitis without complications; K52.9 Noninfective gastroenteritis and colitis, unspecified; F17.210 Nicotine dependence, cigarettes, uncomplicated; F10.229 Alcohol dependence with intoxication, unspecified; K21.9 Gastro-esophageal reflux disease without esophagitis; F12.10 Cannabis abuse, uncomplicated; I10 Essential (primary) hypertension
CPT/HCPCS: 36415; 74177; 74220; 80048; 80053; 80307; 81001; 82010; 82962; 83036; 83690; 83735; 83930; 85025; 85027; 85610; 93005; 93010; 96374; 96375; 99291; J0744; J1200; J1630; J1644; J2060; J2270; J2405; J2550; J2765; J3411; J3475; J3480; J3490; J7030; J7050; S0164

== ENCOUNTER 2017-09-08 03:53 | Emergency (ER) | payer SELFPAY ==
[2017-09-08] MEDS ORDERED: TETRACAINE HCL 0.5% OPH SOLN 2 ML OU ONE (05:27)
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
[2017-09-08] MEDS ORDERED: ACETAMINOPHEN 325 MG TABLET PO ONE (06:01)
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
[2017-09-08 07:53] VITALS: BP 115/74
== END 2017-09-08 07:53 | disposition home or self-care (01) ==
LOC: ER 03:53
DX: S00.83XA Contusion of other part of head, initial encounter (principal); S05.8X9A Other injuries of unspecified eye and orbit, initial encounter; H11.33 Conjunctival hemorrhage, bilateral; Y04.2XXA Assault by strike against or bumped into by another person, initial encounter; F17.200 Nicotine dependence, unspecified, uncomplicated
CPT/HCPCS: 70450; 70486; 99284

== ENCOUNTER 2018-01-15 20:55 | Emergency (ER) | payer SELFPAY ==
[2018-01-15 21:24] VITALS: BP 124/91
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
[2018-01-15] MEDS ORDERED: AMOXICILLIN TR/POT CLAVULANATE 500-125 MG TAB PO ONE (23:07)
[2018-01-15] MEDS ORDERED: HYDROCODONE/ACETAMINOPHEN 5-325 MG TABLET PO ONE (23:08)
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
== END 2018-01-16 | disposition home or self-care (01) ==
LOC: ER 20:55
DX: S61.218A Laceration without foreign body of other finger without damage to nail, initial encounter (principal); L08.9 Local infection of the skin and subcutaneous tissue, unspecified; M79.641 Pain in right hand; M79.89 Other specified soft tissue disorders; Y04.0XXA Assault by unarmed brawl or fight, initial encounter; Z87.891 Personal history of nicotine dependence; I10 Essential (primary) hypertension
CPT/HCPCS: 99282

== ENCOUNTER → 2018-03-19 | Outpatient (CLI) | payer OTHER ==
[2018-03-19 11:33] LABS: HEMATOCRIT 42.6 % (37.9-51.0); HEMOGLOBIN 14.1 g/dL (13.5-17.0); MEAN CORPUSCULAR HEMOGLOBIN 30.7 pg (27.0-33.4); MEAN CORPUSCULAR HGB CONC 33.2 g/dL (32.0-36.0); MEAN CORPUSCULAR VOLUME 92 fl (80-97); PLATELET COUNT 196 10^3/uL (150-450); RED BLOOD COUNT 4.61 10^6/uL (4.35-5.55); RED CELL DISTRIBUTION WIDTH 12.7 % (11.5-14.0); WHITE BLOOD COUNT 3.6 10^3/uL (4.0-10.5)
[2018-03-19 12:13] LABS: ERYTHROCYTE SEDIMENTATION RATE 9 mm/hr (0-15)
[2018-03-19 12:25] LABS: ALANINE AMINOTRANSFERASE 29 U/L (21-72); ALBUMIN 4.6 g/dL (3.5-5.0); ALKALINE PHOSPHATASE 46 U/L (38-126); ANION GAP 8 (5-19); ASPARTATE AMINO TRANSFERASE 25 U/L (17-59); BILIRUBIN,DIRECT 0.1 mg/dL (0.0-0.4); BILIRUBIN,TOTAL 0.5 mg/dL (0.2-1.3); BLOOD UREA NITROGEN 10 mg/dL (7-20); CALCIUM 9.5 mg/dL (8.4-10.2); CARBON DIOXIDE 31 mmol/L (22-30); CHLORIDE 101 mmol/L (98-107); GLUCOSE 85 mg/dL (75-110); POTASSIUM 4.3 mmol/L (3.6-5.0); SODIUM 139.6 mmol/L (137-145); TOTAL PROTEIN 7.7 g/dL (6.3-8.2)
[2018-03-19 12:28] LABS: C-REACTIVE PROTEIN < 5.0 mg/L (<10.0)
[2018-03-22 08:36] LABS: CYCLIC CITRUL PEPTIDE IGG/A AB 6 units (0-19)
== END ==
LOC: LAB 11:07
PROVIDERS: ATTEND Internal Medicine Pulmonary Disease
DX: G89.29 Other chronic pain (principal)
CPT/HCPCS: 36415; 80053; 85027; 85652; 86038; 86140; 86200; 86430

== ENCOUNTER 2018-07-26 11:51 | Emergency (ER) | payer SELFPAY ==
[2018-07-26 12:13] VITALS: BP 123/96
[2018-07-26] MEDS ORDERED: LIDOCAINE 5% (700 MG) TRANSDERMAL ADH..PATCH TP ONE (12:26)
[2018-07-26] MEDS ORDERED: KETOROLAC TROMETHAMINE 60 MG/2 ML SDV IM ONE (12:27)
[2018-07-26] MEDS ORDERED: ACETAMINOPHEN 325 MG TABLET PO ONE (12:27)
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
== END 2018-07-26 12:46 | disposition home or self-care (01) ==
LOC: ER 11:51
DX: M54.5 Low back pain (principal); M25.562 Pain in left knee; I10 Essential (primary) hypertension
CPT/HCPCS: 99283; 96372; J1885

== ENCOUNTER 2019-02-17 09:23 | Emergency (ER) | payer SELFPAY ==
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
[2019-02-17 10:11] LABS: ABSOLUTE LYMPHOCYTES (AUTO) 1.3 10^3/uL (0.5-4.7); ABSOLUTE MONOCYTES (AUTO) 0.5 10^3/uL (0.1-1.4); BASOPHILS % (AUTO) 0.9 % (0-2); EOSINOPHILS % (AUTO) 0.9 % (0-6); HEMATOCRIT 40.3 % (37.9-51.0); HEMOGLOBIN 13.7 g/dL (13.5-17.0); LYMPHOCYTES % (AUTO) 27.4 % (13-45); MEAN CORPUSCULAR HEMOGLOBIN 31.3 pg (27.0-33.4); MEAN CORPUSCULAR HGB CONC 33.9 g/dL (32.0-36.0); MEAN CORPUSCULAR VOLUME 92 fl (80-97); MONOCYTES % (AUTO) 9.9 % (3-13); PLATELET COUNT 253 10^3/uL (150-450); RED BLOOD COUNT 4.36 10^6/uL (4.35-5.55); RED CELL DISTRIBUTION WIDTH 13.7 % (11.5-14.0); SEGMENTED NEUTROPHILS % (AUTO) 60.9 % (42-78); TOTAL CELLS COUNTED % (AUTO) 100 %; WHITE BLOOD COUNT 4.9 10^3/uL (4.0-10.5)
[2019-02-17 10:41] LABS: ALBUMIN 4.9 g/dL (3.5-5.0); ALKALINE PHOSPHATASE 34 U/L (38-126); ANION GAP 11 (5-19); ASPARTATE AMINO TRANSFERASE 44 U/L (17-59); BILIRUBIN,DIRECT 0.5 mg/dL (0.0-0.4); BILIRUBIN,TOTAL 0.9 mg/dL (0.2-1.3); BLOOD UREA NITROGEN 8 mg/dL (7-20); CALCIUM 9.6 mg/dL (8.4-10.2); CARBON DIOXIDE 28 mmol/L (22-30); CHLORIDE 100 mmol/L (98-107); GLUCOSE 80 mg/dL (75-110); POTASSIUM 5.2 mmol/L (3.6-5.0); TOTAL PROTEIN 7.9 g/dL (6.3-8.2)
--- NOTE | 2019-02-17 10:59 | RADIOLOGY REPORT (SQ) ---
EXAM DESCRIPTION: CT ABD/PELVIS WITH IV ONLY COMPLETED DATE/TIME: 02/17/2019 10:41 am REASON FOR STUDY: LLQ pain, hematochezia COMPARISON: 05/25/2017 TECHNIQUE: CT scan of the abdomen and pelvis performed using helical scanning technique with dynamic intravenous contrast injection. No oral contrast. Images reviewed with lung, soft tissue, and bone windows. Reconstructed coronal and sagittal MPR images reviewed. Delayed images for evaluation of the urinary system also acquired. All images stored on PACS. All CT scanners at this facility use dose modulation, iterative reconstruction, and/or weight based d osing when appropriate to reduce radiation dose to as low as reasonably achievable (ALARA). [facility]: Dose Right [facility]: CareDose [facility]: Dose Right [facility]: Teradose 4D [facility]: BuzzTable CONTRAST TYPE AND DOSE: contrast/concentration: Isovue 350.00 mg/ml; Total Contrast Delivered: 75.0 ml; Total Saline Delivered: 65.0 ml RENAL FUNCTION: None required. The patient is less than 50 years old. RADIATION DOSE: CT Rad equipment meets quality standard of care and radiation dose reduction techniq ues were employed. CTDIvol: 5.0 - 6.2 mGy. DLP: 621 mGy-cm.. LIMITATIONS: None. FINDINGS: LOWER CHEST: No significant findings. No nodules or infiltrates. LIVER: Normal size. No masses. No dilated ducts. SPLEEN: Normal size. No focal lesions. PANCREAS: No masses. No significant calcifications. No adjacent inflammation or peripancreatic fluid collections. Pancreatic duct not dilated. GALLBLADDER: No identified stones by CT criteria. No inflammatory changes to suggest cholecystitis. ADRENAL GLANDS: No significant masses or asymmetry. RIGHT KIDNEY AND URETER: No solid masses. No significant calcifications. No hydronephrosis or hyd roureter. LEFT KIDNEY AND URETER: No solid masses. No significant calcifications. No hydronephrosis or hydr oureter. AORTA AND VESSELS: No aneurysm. No dissection. Renal arteries, SMA, celiac without stenosis. RETROPERITONEUM: No retroperitoneal adenopathy, hemorrhage or masses. BOWEL AND PERITONEAL CAVITY: No masses or inflammatory changes. No free fluid or peritoneal masses. APPENDIX: Normal. PELVIS: No mass. No free fluid. Normal bladder. ABDOMINAL WALL: No masses. No hernias. BONES: No significant or acute findings. OTHER: No other significant finding. IMPRESSION: No CT abnormality of the abdomen or pelvis to explain left lower quadrant abdominal pain . TECHNICAL DOCUMENTATION: JOB ID: [id number] Quality ID # [id number]: Final reports with documentation of one or more dose reduction techniques (e.g., Au tomated exposure control, adjustment of the mA and/or kV according to patient size, use of iterative reconstruction technique) 2010 [employer]- All Rights Reserved Reading location - IP/workstation name: [email or web address]
[2019-02-17 11:02] LABS: APPEARANCE,URINE CLEAR; BILIRUBIN,URINE NEGATIVE (NEGATIVE); COLOR,URINE YELLOW; GLUCOSE, URINE NEGATIVE (NEGATIVE); KETONES,URINE NEGATIVE (NEGATIVE); LEUKOCYTE ESTERASE,URINE NEGATIVE (NEGATIVE); NITRITE,URINE NEGATIVE (NEGATIVE); PROTEIN,URINE NEGATIVE (NEGATIVE); URINE SPECIFIC GRAVITY 1.023; UROBILINOGEN,URINE NEGATIVE mg/dL (<2.0)
[2019-02-17 11:44] VITALS: BP 122/78
== END 2019-02-17 11:43 | disposition home or self-care (01) ==
LOC: ER 09:23
DX: R19.5 Other fecal abnormalities (principal); R10.9 Unspecified abdominal pain; R10.32 Left lower quadrant pain; I10 Essential (primary) hypertension
CPT/HCPCS: 36415; 74177; 80053; 81001; 85025; 86850; 86900; 86901; 99285

== ENCOUNTER 2019-10-23 13:55 | Emergency (ER) | payer SELFPAY ==
[2019-10-23] MEDS ORDERED: NORMAL SALINE 1000 ML 1,000 ML IV ONE (16:51)
[2019-10-23] MEDS ORDERED: ONDANSETRON HCL INJ/PF 4 MG/2 ML SDV IV ONE ×2 (16:51→20:20)
[2019-10-23] MEDS ORDERED: DIPHENHYDRAMINE HCL 50 MG/ML VIAL IV ONE (16:52)
[2019-10-23] MEDS ORDERED: HALOPERIDOL LACTATE INJ 5 MG/1 ML VIAL IV ONE (16:52)
[2019-10-23] MEDS ORDERED: HALOPERIDOL LACTATE INJ 5 MG/1 ML VIAL IM ONE (17:00)
[2019-10-23 17:41] LABS: HEMATOCRIT 42.4 % (37.9-51.0); HEMOGLOBIN 14.4 g/dL (13.5-17.0); MEAN CORPUSCULAR HEMOGLOBIN 31.9 pg (27.0-33.4); MEAN CORPUSCULAR HGB CONC 34.1 g/dL (32.0-36.0); MEAN CORPUSCULAR VOLUME 94 fl (80-97); PLATELET COUNT 255 10^3/uL (150-450); RED BLOOD COUNT 4.53 10^6/uL (4.35-5.55); RED CELL DISTRIBUTION WIDTH 13.8 % (11.5-14.0); WHITE BLOOD COUNT 12.7 10^3/uL (4.0-10.5)
[2019-10-23 17:46] LABS: APPEARANCE,URINE SLIGHTLY-CLOUDY; BILIRUBIN,URINE NEGATIVE (NEGATIVE); COLOR,URINE YELLOW; GLUCOSE, URINE NEGATIVE (NEGATIVE); KETONES,URINE 80 mg/dL (NEGATIVE); LEUKOCYTE ESTERASE,URINE TRACE (NEGATIVE); NITRITE,URINE NEGATIVE (NEGATIVE); PROTEIN,URINE 100 mg/dL (NEGATIVE); URINE SPECIFIC GRAVITY 1.036; UROBILINOGEN,URINE NEGATIVE mg/dL (<2.0)
--- NOTE | 2019-10-23 17:58 | RADIOLOGY REPORT (SQ) ---
EXAM DESCRIPTION: ACUTE ABDOMEN SERIES IMAGES COMPLETED DATE/TIME: 10/23/2019 4:39 pm REASON FOR STUDY: nausea/vomiting COMPARISON: None. NUMBER OF VIEWS: Three views. TECHNIQUE: Frontal chest, supine abdomen and upright/decubitus abdomen radiographic images acquired. LIMITATIONS: None. FINDINGS: CHEST: Lungs clear of infiltrates. FREE AIR: None. No abnormal gas collections. BOWEL GAS PATTERN: Nonobstructive pattern. No dilated loops or air fluid levels. CALCIFICATIONS: No suspicious calcifications. HARDWARE: None in the abdomen. SOFT TISSUES: No gross mass or suggestion of organomegaly. BONES: No acute fracture. No worrisome bone lesions. OTHER: No other significant finding. IMPRESSION: NO RADIOGRAPHIC EVIDENCE FOR ACUTE ABDOMINAL DISEASE. TECHNICAL DOCUMENTATION: JOB ID: [id number] 2010 [employer]- All Rights Reserved Reading location - IP/workstation name: [email or web address]
[2019-10-23 18:00] LABS: ALBUMIN 5.7 g/dL (3.5-5.0); ALKALINE PHOSPHATASE 58 U/L (38-126); ANION GAP 17 (5-19); ASPARTATE AMINO TRANSFERASE 34 U/L (17-59); BILIRUBIN,TOTAL 0.9 mg/dL (0.2-1.3); BLOOD UREA NITROGEN 16 mg/dL (7-20); CALCIUM 11.4 mg/dL (8.4-10.2); CARBON DIOXIDE 22 mmol/L (22-30); CHLORIDE 104 mmol/L (98-107); GLUCOSE 117 mg/dL (75-110); POTASSIUM 3.7 mmol/L (3.6-5.0); TOTAL PROTEIN 9.5 g/dL (6.3-8.2)
[2019-10-23 18:05] LABS: ALCOHOL < 10 mg/dL (NONE DETECTED); URINE AMPHETAMINES SCREEN NEGATIVE; URINE BARBITURATES SCREEN NEGATIVE; URINE BENZODIAZEPINES SCREEN NEGATIVE; URINE COCAINE SCREEN NEGATIVE; URINE METHADONE SCREEN NEGATIVE; URINE PHENCYCLIDINE SCREEN NEGATIVE
[2019-10-23 18:06] LABS: URINE MARIJUANA (THC) SCREEN UNCONFIRMED POSITIVE
[2019-10-23 18:19] LABS: ABSOLUTE LYMPHOCYTES# (MANUAL) 0.8 10^3/uL (0.5-4.7); ABSOLUTE MONOCYTES # (MANUAL) 0.9 10^3/uL (0.1-1.4); BASOPHILS % (MANUAL) 0 % (0-2); EOSINOPHILS % (MANUAL) 0 % (0-6); LYMPHOCYTES % (MANUAL) 4 % (13-45); MONOCYTES % (MANUAL) 7 % (3-13); SEGMENTED NEUTROPHILS % (MAN) 87 % (42-78); TOTAL CELLS COUNTED 100
[2019-10-23 18:20] LABS: PLATELET COMMENT ADEQUATE
[2019-10-23 18:21] LABS: TARGET CELLS SLIGHT
[2019-10-23] MEDS: NORMAL SALINE 1000 ML 1,000 ML IV PRN ×2 (20:12→21:20)
[2019-10-23] MEDS ORDERED: MORPHINE SULFATE 10 MG/ML INJ IV ONE (20:20)
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
[2019-10-23 22:00] VITALS: BP 105/58
== END 2019-10-23 22:45 | disposition home or self-care (01) ==
LOC: ER 13:55
DX: R11.15 Cyclical vomiting syndrome unrelated to migraine (principal); E86.0 Dehydration; F12.10 Cannabis abuse, uncomplicated; M79.10 Myalgia, unspecified site; R11.2 Nausea with vomiting, unspecified; F17.210 Nicotine dependence, cigarettes, uncomplicated; I10 Essential (primary) hypertension
CPT/HCPCS: 96376; 99284; 96372; 96361; 96374; 96375; 36415; 80307 ×2; 83605; 83690; 85025; 80053; 81001; 74022; J1200; J1630; J2270; J2405; J7030

== ENCOUNTER 2019-10-25 11:48 | Emergency (ER) | payer SELFPAY ==
[2019-10-25] MEDS ORDERED: ONDANSETRON HCL INJ/PF 4 MG/2 ML SDV IV ONE ×2 (12:10→19:05)
[2019-10-25] MEDS ORDERED: ONDANSETRON HCL INJ/PF 4 MG/2 ML SDV ONE (12:11)
[2019-10-25] MEDS ORDERED: HALOPERIDOL LACTATE INJ 5 MG/1 ML VIAL IV ONE (12:16)
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
[2019-10-25 14:04] LABS: ABSOLUTE LYMPHOCYTES (AUTO) 0.7 10^3/uL (0.5-4.7); ABSOLUTE MONOCYTES (AUTO) 0.6 10^3/uL (0.1-1.4); ABSOLUTE NEUT (AUTO) 6.4 10^3/uL (1.7-8.2); BASOPHILS % (AUTO) 0.6 % (0-2); HEMATOCRIT 40.3 % (37.9-51.0); HEMOGLOBIN 13.7 g/dL (13.5-17.0); LYMPHOCYTES % (AUTO) 8.7 % (13-45); MEAN CORPUSCULAR HEMOGLOBIN 31.7 pg (27.0-33.4); MEAN CORPUSCULAR HGB CONC 34.1 g/dL (32.0-36.0); MEAN CORPUSCULAR VOLUME 93 fl (80-97); MONOCYTES % (AUTO) 7.5 % (3-13); PLATELET COUNT 206 10^3/uL (150-450); RED BLOOD COUNT 4.33 10^6/uL (4.35-5.55); RED CELL DISTRIBUTION WIDTH 14.1 % (11.5-14.0); SEGMENTED NEUTROPHILS % (AUTO) 83.2 % (42-78); TOTAL CELLS COUNTED % (AUTO) 100 %; WHITE BLOOD COUNT 7.7 10^3/uL (4.0-10.5)
[2019-10-25] MEDS: NORMAL SALINE 1000 ML 1,000 ML IV PRN ×2 (14:11→16:26)
[2019-10-25 14:23] LABS: ALBUMIN 5.1 g/dL (3.5-5.0); ALKALINE PHOSPHATASE 46 U/L (38-126); ANION GAP 11 (5-19); ASPARTATE AMINO TRANSFERASE 45 U/L (17-59); BILIRUBIN,TOTAL 0.6 mg/dL (0.2-1.3); BLOOD UREA NITROGEN 11 mg/dL (7-20); CALCIUM 9.8 mg/dL (8.4-10.2); CARBON DIOXIDE 26 mmol/L (22-30); CHLORIDE 101 mmol/L (98-107); GLUCOSE 117 mg/dL (75-110); POTASSIUM 3.5 mmol/L (3.6-5.0); TOTAL PROTEIN 8.1 g/dL (6.3-8.2)
[2019-10-25 14:26] LABS: ALCOHOL < 10 mg/dL (NONE DETECTED)
[2019-10-25] MEDS ORDERED: MORPHINE SULFATE 10 MG/ML INJ IV ONE (15:02)
--- NOTE | 2019-10-25 15:33 | RADIOLOGY REPORT (SQ) ---
EXAM DESCRIPTION: CT ABD/PELVIS WITH IV ONLY IMAGES COMPLETED DATE/TIME: 10/25/2019 2:04 pm REASON FOR STUDY: RLQ pain . COMPARISON: 02/17/2019 TECHNIQUE: CT scan of the abdomen and pelvis performed using helical scanning technique with dynamic intravenous contrast injection. No oral contrast. Images reviewed with lung, soft tissue, and bone windows. Reconstructed coronal and sagittal MPR images reviewed. Delayed images for evaluation of the urinary system also acquired. All images stored on PACS. All CT scanners at this facility use dose modulation, iterative reconstruction, and/or weight based d osing when appropriate to reduce radiation dose to as low as reasonably achievable (ALARA). [facility]: Dose Right [facility]: CareDose [facility]: Dose Right [facility]: Teradose 4D [facility]: Nimsoft CONTRAST TYPE AND DOSE: contrast/concentration: Isovue 350.00 mg/ml; Total Contrast Delivered: 94.0 ml; Total Saline Delivered: 71.0 ml RENAL FUNCTION: GFR > 60. RADIATION DOSE: CT Rad equipment meets quality standard of care and radiation dose reduction techniq ues were employed. CTDIvol: 4.8 - 5.0 mGy. DLP: 532 mGy-cm.. LIMITATIONS: None. FINDINGS: LOWER CHEST: No significant findings. No nodules or infiltrates. LIVER: Normal size. No masses. No dilated ducts. SPLEEN: Normal size. No focal lesions. PANCREAS: No masses. No significant calcifications. No adjacent inflammation or peripancreatic fluid collections. Pancreatic duct not dilated. GALLBLADDER: No identified stones by CT criteria. No inflammatory changes to suggest cholecystitis. ADRENAL GLANDS: No significant masses or asymmetry. RIGHT KIDNEY AND URETER: No solid masses. No significant calcifications. No hydronephrosis or hyd roureter. LEFT KIDNEY AND URETER: No solid masses. No significant calcifications. No hydronephrosis or hydr oureter. AORTA AND VESSELS: No aneurysm. No dissection. Renal arteries, SMA, celiac without stenosis. RETROPERITONEUM: No retroperitoneal adenopathy, hemorrhage or masses. BOWEL AND PERITONEAL CAVITY: There is underdistention of the entire colon. Scattered colonic diverti cula without evidence of diverticulitis. No bowel obstruction. Prominent fat within the bowel wall particularly in the ascending colon, possibly representing underlying chronic inflammatory change. N o acute inflammatory change. No ascites or pneumoperitoneum. APPENDIX: Normal. PELVIS: No mass. No free fluid. Normal bladder. ABDOMINAL WALL: No masses. No hernias. BONES: No significant or acute findings. OTHER: No other significant finding. IMPRESSION: 1. No acute abnormality in the abdomen or pelvis to explain the patient's symptoms. The appendix is normal. 2. Prominent fat in the colon wall particularly in the ascending colon, which can be seen in associat ion with chronic inflammatory bowel disease such as Crohn disease. Clinical correlation is recommend ed. 3. Mild diverticulosis without evidence of diverticulitis. No acute inflammatory change. TECHNICAL DOCUMENTATION: JOB ID: [id number] Quality ID # [id number]: Final reports with documentation of one or more dose reduction techniques (e.g., Au tomated exposure control, adjustment of the mA and/or kV according to patient size, use of iterative reconstruction technique) 2010 [employer]- All Rights Reserved Reading location - IP/workstation name: [email or web address]
[2019-10-25 15:36] LABS: APPEARANCE,URINE CLEAR; BILIRUBIN,URINE NEGATIVE (NEGATIVE); COLOR,URINE YELLOW; GLUCOSE, URINE NEGATIVE (NEGATIVE); KETONES,URINE 80 mg/dL (NEGATIVE); PROTEIN,URINE 30 mg/dL (NEGATIVE); URINE SPECIFIC GRAVITY 1.049; UROBILINOGEN,URINE NEGATIVE mg/dL (<2.0)
[2019-10-25 15:56] LABS: URINE AMPHETAMINES SCREEN NEGATIVE; URINE BARBITURATES SCREEN NEGATIVE; URINE BENZODIAZEPINES SCREEN NEGATIVE; URINE COCAINE SCREEN NEGATIVE; URINE MARIJUANA (THC) SCREEN UNCONFIRMED POSITIVE; URINE METHADONE SCREEN NEGATIVE; URINE PHENCYCLIDINE SCREEN NEGATIVE
[2019-10-25] MEDS ORDERED: CEFTRIAXONE 1 GM/D5W RTU 1 GM/50 ML RTUPB IV ONE (17:29)
[2019-10-25] MEDS ORDERED: AZITHROMYCIN 1 GM SUSP PACKET PO ONE (17:30)
--- NOTE | 2019-10-25 17:31 | ER Document Report ---
Doctor's Note Notes: 10/25/19 17:30 33-year-old male who presents with some repeat vomiting abdominal pain. Patient was seen here yesterday as well as today. Patient did have a history of cyclic vomiting syndrome. Marijuana was positive on drug screen. Patient does have multiple white blood cells in the urine analysis. No testicular pain or swelling. No vomiting here in the patient's abdomen exam is improved from prior reports. Given the white blood cell count in the urine with no obvious signs of kidney stone on CT scan, afebrile with stable vital signs, I will provide a dose of Rocephin and azithromycin and send off chlamydia and gonorrhea testing as well as a urine culture and an RPR. Patient feels very comfortable going home. I believe this is a reasonable option.
[2019-10-25 19:42] VITALS: BP 150/81
[2019-10-25 20:45] LABS: CHLAM PCR NOT DETECTED (NOT DETECT)
== END 2019-10-25 19:43 | disposition home or self-care (01) ==
LOC: ER 11:48
DX: K52.9 Noninfective gastroenteritis and colitis, unspecified (principal); R82.998 Other abnormal findings in urine; R11.2 Nausea with vomiting, unspecified; R10.84 Generalized abdominal pain; F17.200 Nicotine dependence, unspecified, uncomplicated; I10 Essential (primary) hypertension
CPT/HCPCS: 96376; 99284; 96361; 96375; 96365; 36415; 87086; 80307 ×2; 83605; 83690; 83735; 85025; 86592; 80053; 81001; 87491; 87591; 74177; J1630; Q0144; J2270; J2405; J7030; J0696; 87088

== ENCOUNTER 2020-01-01 09:59 | Emergency (ER) | payer SELFPAY ==
[2020-01-01] MEDS ORDERED: RINGERS SOLUTION,LACTATED 1,000 ML IV ONE (11:00)
[2020-01-01] MEDS ORDERED: HALOPERIDOL LACTATE INJ 5 MG/1 ML VIAL IM ONE (11:01)
[2020-01-01] MEDS ORDERED: DIPHENHYDRAMINE HCL 50 MG/ML VIAL IM ONE (11:02)
[2020-01-01] MEDS ORDERED: FAMOTIDINE INJ/PF 20 MG/2 ML SDV IV ONE (11:02)
[2020-01-01] MEDS ORDERED: ONDANSETRON HCL INJ/PF 4 MG/2 ML SDV IV ONE (11:03)
[2020-01-01 11:39] LABS: BLOOD UREA NITROGEN 10 mg/dL (7-20); CALCIUM 10.5 mg/dL (8.4-10.2); GLUCOSE 131 mg/dL (75-110)
[2020-01-01 11:40] LABS: ALBUMIN 5.6 g/dL (3.5-5.0); ALKALINE PHOSPHATASE 59 U/L (38-126); ANION GAP 13 (5-19); ASPARTATE AMINO TRANSFERASE 57 U/L (17-59); BILIRUBIN,TOTAL 0.7 mg/dL (0.2-1.3); CARBON DIOXIDE 24 mmol/L (22-30); CHLORIDE 105 mmol/L (98-107); POTASSIUM 3.8 mmol/L (3.6-5.0); TOTAL PROTEIN 9.3 g/dL (6.3-8.2)
[2020-01-01 11:42] LABS: ALCOHOL < 10 mg/dL (NONE DETECTED)
--- NOTE | 2020-01-01 12:17 | RADIOLOGY REPORT (SQ) ---
EXAM DESCRIPTION: ACUTE ABDOMEN SERIES IMAGES COMPLETED DATE/TIME: 01/01/2020 10:57 am REASON FOR STUDY: nausea/vomiting . COMPARISON: None. NUMBER OF VIEWS: Three views. TECHNIQUE: Frontal chest, supine abdomen and upright/decubitus abdomen radiographic images acquired. LIMITATIONS: None. FINDINGS: CHEST: Lungs clear of infiltrates. FREE AIR: None. No abnormal gas collections. BOWEL GAS PATTERN: Nonobstructive pattern. No dilated loops or air fluid levels. CALCIFICATIONS: No suspicious calcifications. HARDWARE: None in the abdomen. SOFT TISSUES: No gross mass or suggestion of organomegaly. BONES: No acute fracture. No worrisome bone lesions. OTHER: No other significant finding. IMPRESSION: No acute cardiopulmonary disease. Nonobstructive bowel gas pattern. TECHNICAL DOCUMENTATION: JOB ID: [id number] 2010 [employer] All Rights Reserved Reading location - IP/workstation name: [email or web address]
[2020-01-01 12:20] LABS: APPEARANCE,URINE SLIGHTLY-CLOUDY; BILIRUBIN,URINE NEGATIVE (NEGATIVE); COLOR,URINE YELLOW; GLUCOSE, URINE NEGATIVE (NEGATIVE); KETONES,URINE 20 mg/dL (NEGATIVE); LEUKOCYTE ESTERASE,URINE NEGATIVE (NEGATIVE); NITRITE,URINE NEGATIVE (NEGATIVE); PROTEIN,URINE 30 mg/dL (NEGATIVE); URINE SPECIFIC GRAVITY 1.019; UROBILINOGEN,URINE NEGATIVE mg/dL (<2.0)
[2020-01-01 12:40] LABS: ABSOLUTE LYMPHOCYTES (AUTO) 0.8 10^3/uL (0.5-4.7); ABSOLUTE MONOCYTES (AUTO) 0.4 10^3/uL (0.1-1.4); ABSOLUTE NEUT (AUTO) 6.4 10^3/uL (1.7-8.2); BASOPHILS % (AUTO) 0.5 % (0-2); HEMATOCRIT 40.8 % (37.9-51.0); HEMOGLOBIN 13.7 g/dL (13.5-17.0); LYMPHOCYTES % (AUTO) 10.3 % (13-45); MEAN CORPUSCULAR HGB CONC 33.5 g/dL (32.0-36.0); MEAN CORPUSCULAR VOLUME 93 fl (80-97); MONOCYTES % (AUTO) 5.7 % (3-13); PLATELET COUNT 243 10^3/uL (150-450); RED CELL DISTRIBUTION WIDTH 13.8 % (11.5-14.0); SEGMENTED NEUTROPHILS % (AUTO) 83.5 % (42-78); TOTAL CELLS COUNTED % (AUTO) 100 %; WHITE BLOOD COUNT 7.6 10^3/uL (4.0-10.5)
[2020-01-01 12:41] LABS: URINE AMPHETAMINES SCREEN NEGATIVE; URINE BARBITURATES SCREEN NEGATIVE; URINE BENZODIAZEPINES SCREEN NEGATIVE; URINE COCAINE SCREEN NEGATIVE; URINE METHADONE SCREEN NEGATIVE; URINE PHENCYCLIDINE SCREEN NEGATIVE
[2020-01-01 12:45] LABS: URINE MARIJUANA (THC) SCREEN UNCONFIRMED POSITIVE
[2020-01-01] MEDS ORDERED: NORMAL SALINE 1000 ML 1,000 ML IV ONE (14:03)
[2020-01-01] MEDS ORDERED: DEXTROSE 5%-LACTATED RINGERS 1,000 ML IV ONE (14:03)
[2020-01-01] MEDS ORDERED: MORPHINE SULFATE 10 MG/ML INJ IV ONE (14:04)
[2020-01-01] MEDS ORDERED: PROMETHAZINE HCL INJ 25 MG/1 ML VIAL IM ONE (14:05)
[2020-01-01] MEDS ORDERED: HYDROMORPHONE HCL INJ/PF 2 MG/ML AMPULE IV ONE (15:49)
[2020-01-01] MEDS ORDERED: LABETALOL HCL INJ 20 MG/4 ML DISP.SYRIN IV ONE (16:54)
[2020-01-01 20:08] VITALS: BP 117/81
--- NOTE | 2020-01-01 21:31 | RADIOLOGY REPORT (SQ) ---
EXAM DESCRIPTION: CT ABDOMEN PELVIS WITH IV CONTRAST COMPLETED DATE/TME: 01/01/2020 00:00 CLINICAL HISTORY: 34 years, Male, abd pain/nausea/vomiting COMPARISON: Previous studies from 10/25/2019, 02/17/2019 and 05/25/2017. TECHNIQUE: Axial images with 100 mL of Omnipaque 350. Oral contrast administered. Sagittal coronal reconstruction. Images stored on PACS. All CT scanners at this facility use dose modulation, iterative reconstruction, and/or weight based dosing when appropriate to reduce radiation dose to as low as reasonably achievable (ALARA). FINDINGS: Mild cardiomegaly unchanged. Lung bases are unremarkable. No suspicious focal hepatic lesions. Spleen not enlarged. Biliary system, pancreas, adrenal glands, kidneys, para-aortic regions are unremarkable. Early atherosclerotic aorta. Suspected moderate narrowing at the origin of the celiac artery probably caused by median arcuate ligament. Stomach demonstrates minimal thickening of the wall of the antrum. Small bowel loops are unremarkable. Mild colonic thickening in the cecum and ascending portion. Series 3 images 50-57. Mild thickening of the transverse colon, image 36. No definite left colon thickening. CT of the pelvis demonstrates minimally distended urinary bladder and mildly enlarged prostate. Question rectosigmoid thickening versus artifact from contraction. No free fluid or adenopathy. No suspicious bony lesions. IMPRESSION: 1. Similar to previous studies, there is suggestion of mild thickening of the ascending and transverse colon. Suggestive of mild chronic colitis. Rule out inflammatory bowel disease. Very minimal thickening in the rectosigmoid area is more likely artifact from contraction. No suspicious small bowel abnormality. Nonspecific minimal thickening of the antral wall of the stomach. 2. Incidental moderate narrowing at the origin of the celiac artery presumably related to median arcuate ligament. May or may not be hemodynamically significant.
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
== END 2020-01-01 22:19 | disposition home or self-care (01) ==
LOC: ER 09:59
DX: R11.2 Nausea with vomiting, unspecified (principal); E86.0 Dehydration; K63.89 Other specified diseases of intestine; R10.9 Unspecified abdominal pain; M79.10 Myalgia, unspecified site; R68.83 Chills (without fever); F17.200 Nicotine dependence, unspecified, uncomplicated; F12.10 Cannabis abuse, uncomplicated; I10 Essential (primary) hypertension
CPT/HCPCS: 99284; 96372; 96361; 96374; 96375; 36415; 80307 ×2; 83605; 83690; 85025; 80053; 81001; 74022; 74177; J1200; J1630; J3490; J2270; J1170; J2550; J2405; J7121; J7030; J7120; S0028

== ENCOUNTER 2020-01-28 15:51 | Emergency (ER) | payer SELFPAY ==
[2020-01-28] MEDS ORDERED: DIPH/PERTUSS(ACELL)/TETANUS VAC/PF 0.5 ML SYR (>=10YO) IM ONE (16:07)
[2020-01-28] MEDS ORDERED: ACETAMINOPHEN 325 MG TABLET PO ONE (16:07)
[2020-01-28] MEDS ORDERED: LIDOCAINE 4% CREAM 5 GM TUBE TP ONE (16:08)
--- NOTE | 2020-01-28 16:38 | RADIOLOGY REPORT (SQ) ---
EXAM DESCRIPTION: CT HEAD WITHOUT IMAGES COMPLETED DATE/TIME: 01/28/2020 4:19 pm REASON FOR STUDY: fall, head injury COMPARISON: CT of the head without contrast from 09/08/2017. TECHNIQUE: Axial images acquired through the brain without intravenous contrast. Images reviewed wi th bone, brain and subdural windows. Additional sagittal and coronal reconstructions were generated. Images stored on PACS. All CT scanners at this facility use dose modulation, iterative reconstruction, and/or weight based d osing when appropriate to reduce radiation dose to as low as reasonably achievable (ALARA). [facility]: Dose Right [facility]: CareDose [facility]: Dose Right [facility]: Teradose 4D [facility]: Genome RADIATION DOSE: CT Rad equipment meets quality standard of care and radiation dose reduction techniq ues were employed. CTDIvol: 53.2 mGy. DLP: 1124 mGy-cm. LIMITATIONS: None. FINDINGS: There is no acute intracranial hemorrhage, vascular territorial infarct, extra-axial fluid collection, mass effect or midline shift. The virk-white matter differentiation is preserved. The caliber of the ventricles is concordant with the degree of sulcation. There is no effacement of the cerebral sulci or basal subarachnoid cisterns. The orbits and globes are intact. The paranasal sinuses are clear. There is no fracture of the calv arium. IMPRESSION: No acute intracranial abnormality. EVIDENCE OF ACUTE STROKE: NO. COMMENT: Quality ID # [id number]: Final reports with documentation of one or more dose reduction techniques (e.g., Automated exposure control, adjustment of the mA and/or kV according to patient size, use of iterative reconstruction technique) TECHNICAL DOCUMENTATION: JOB ID: [id number] 2010 [employer]- All Rights Reserved Reading location - IP/workstation name: [email or web address]
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
[2020-01-28 17:25] VITALS: BP 110/67
== END 2020-01-28 17:26 | disposition home or self-care (01) ==
LOC: ER 15:51
DX: S01.01XA Laceration without foreign body of scalp, initial encounter (principal); R51 Headache; W03.XXXA Other fall on same level due to collision with another person, initial encounter; Y93.67 Activity, basketball; F17.200 Nicotine dependence, unspecified, uncomplicated; Z23 Encounter for immunization
CPT/HCPCS: 99284; 90471; 70450; 90715; 12002; J3490

== ENCOUNTER 2020-06-01 10:43 | Emergency (ER) | payer SELFPAY ==
[2020-06-01 11:17] VITALS: BP 115/74
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
== END 2020-06-01 12:04 | disposition home or self-care (01) ==
LOC: ER 10:43
DX: L25.9 Unspecified contact dermatitis, unspecified cause (principal); I10 Essential (primary) hypertension
CPT/HCPCS: 99283